=== PATIENT | female | born 1960 | race American Indian/Alaskan Native ===

== ENCOUNTER 2017-08-25 16:36 | Emergency (ER) | payer SELFPAY ==
[2017-08-25 18:48] VITALS: BP 125/77
--- NOTE | 2017-08-25 21:06 | Emergency Department Report ---
- General Chief Complaint: Skin/Abscess/Foreign Body Stated Complaint: SORE UNDER RIGHT BREAST Time Seen by Provider: 08/25/17 20:41 Source: patient Mode of arrival: Ambulatory Limitations: No Limitations - History of Present Illness Initial Comments: She is a 57-year-old female who has a past medical history of breast cancer approximately 10 years ago who is presenting with several miles of right breast drainage and there is a wound present underneath the right wrist. The patient states she has intermittent pain in this area that has been some drainage. Patient denies any fevers chills nipple discharge at this time. Patient states she's tried to see a physician has been unsuccessful up until this date - Related Data Previous Rx's Medication Instructions Recorded Last Taken Type Dextromethorphan HBr [Tussin Cough] 15 mg PO 4XD PRN #100 syrup 07/01/16 Unknown Rx Ibuprofen [Motrin 800 MG tab] 800 mg PO Q8HR PRN #14 tablet 07/01/16 Unknown Rx Doxycycline [Vibramycin CAP] 100 mg PO Q12HR #14 capsule 08/25/17 Unknown Rx HYDROcodone/APAP 5-325 [[place] 1 each PO Q6HR PRN #12 tablet 08/25/17 Unknown Rx 5/325] Ibuprofen [Motrin] 800 mg PO Q8HR PRN #20 tablet 08/25/17 Unknown Rx Allergies Allergy/AdvReac Type Severity Reaction Status Date / Time No Known Allergies Allergy Verified 07/01/16 07:21 ED Review of Systems ROS: Stated complaint: SORE UNDER RIGHT BREAST Other details as noted in HPI Comment: All other systems reviewed and negative ED Past Medical Hx - Past Medical History Hx of Cancer: Yes Additional medical history: Breast Cancer 1989 - Surgical History Hx Breast Surgery: Yes Additional Surgical History: Breast cancer with bilateral mastectomy and reconstruction 1989. - Social History Smoking Status: Never Smoker Substance Use Type: None - Medications Home Medications: Home Medications Medication Instructions Recorded Confirmed Last Taken Type Dextromethorphan HBr [Tussin Cough] 15 mg PO 4XD PRN #100 syrup 07/01/16 Unknown Rx Ibuprofen [Motrin 800 MG tab] 800 mg PO Q8HR PRN #14 tablet 07/01/16 Unknown Rx Doxycycline [Vibramycin CAP] 100 mg PO Q12HR #14 capsule 08/25/17 Unknown Rx HYDROcodone/APAP 5-325 [[place] 1 each PO Q6HR PRN #12 tablet 08/25/17 Unknown Rx 5/325] Ibuprofen [Motrin] 800 mg PO Q8HR PRN #20 tablet 08/25/17 Unknown Rx ED Physical Exam - General Limitations: No Limitations General appearance: alert, in no apparent distress - Head Head exam: Present: atraumatic, normocephalic - Eye Eye exam: Present: normal appearance - ENT ENT exam: Present: mucous membranes moist - Neck Neck exam: Present: normal inspection - Respiratory Respiratory exam: Present: normal lung sounds bilaterally. Absent: respiratory distress - Cardiovascular Cardiovascular Exam: Present: regular rate, normal rhythm. Absent: systolic murmur, diastolic murmur, rubs, gallop - GI/Abdominal GI/Abdominal exam: Present: soft, normal bowel sounds. Absent: distended, tenderness, guarding - Extremities Exam Extremities exam: Present: normal inspection - Back Exam Back exam: Present: normal inspection - Neurological Exam Neurological exam: Present: alert, oriented X3 - Psychiatric Psychiatric exam: Present: normal affect, normal mood - Skin Skin exam: Present: warm, dry, intact, normal color, other (beneath the proximal E7 centimeters long and it was at least 3-4 cm deep wound that has mostly good granulation tissue present this is a gaping wound. On the medial aspect of the wound there is a area of scar tissue that is soft and fluctuant. In palpation of this area there is no purulent drainage coming from this area currently. Patient does note some tenderness upon touching this area. There is a small amount of surrounding erythema.). Absent: rash ED Course Vital Signs 08/25/17 18:37 Temperature 97.9 F Pulse Rate 74 Respiratory 18 Rate Blood Pressure 125/77 O2 Sat by Pulse 99 Oximetry ED Medical Decision Making - Medical Decision Making She'll be referred to wound care as well as surgery for further management. Because of the small amount of erythema patient be started on antibiotics and pain meds. Critical care attestation.: If time is entered above; I have spent that time in minutes in the direct care of this critically ill patient, excluding procedure time. ED Disposition Clinical Impression: Wound infection Disposition: DC-01 TO HOME OR SELFCARE Is pt being admited?: No Does the pt Need Aspirin: No Condition: Stable Instructions: Wound Infection (ED) Prescriptions: Doxycycline [Vibramycin CAP] 100 mg PO Q12HR #14 capsule HYDROcodone/APAP 5-325 [[place] 5/325] 1 each PO Q6HR PRN #12 tablet PRN Reason: Pain Ibuprofen [Motrin] 800 mg PO Q8HR PRN #20 tablet PRN Reason: Pain Referrals: PRIMARY CARE,MD [Primary Care Provider] - 3-5 Days
== END 2017-08-25 22:05 | disposition home or self-care (01) ==
LOC: ED 16:36
DX: T18.4XXA Foreign body in colon, initial encounter (principal); Y83.8 Other surgical procedures as the cause of abnormal reaction of the patient, or of later complication, without mention of misadventure at the time of the procedure
CPT/HCPCS: 99282

== ENCOUNTER 2017-09-16 12:50 | Emergency (ER) | payer SELFPAY ==
--- NOTE | 2017-09-16 15:01 | Emergency Department Report ---
Minor Respiratory - HPI Chief Complaint: Upper Respiratory Infection Stated Complaint: FLU SX Time Seen by Provider: 09/16/17 13:46 Duration: 1 Day Pain Location: Other (body ) Minor Respiratory: Yes Able to Tolerate Fluids, Yes Cough, Yes Fever, No Rhinorrhea, No Sore Throat, No Ear Pain, No Sick Contacts, No Hemoptysis, No Chest Pain, No Shortness of Breath ED Review of Systems ROS: Stated complaint: FLU SX Other details as noted in HPI Constitutional: fever. denies: chills Eyes: denies: eye pain, eye discharge, vision change ENT: denies: ear pain, throat pain Respiratory: cough. denies: shortness of breath, wheezing Cardiovascular: denies: chest pain, palpitations Endocrine: no symptoms reported Gastrointestinal: denies: abdominal pain, nausea, diarrhea Genitourinary: denies: urgency, dysuria, discharge Musculoskeletal: myalgia. denies: back pain, joint swelling, arthralgia Skin: denies: rash, lesions Neurological: denies: headache, weakness, paresthesias Psychiatric: denies: anxiety, depression Hematological/Lymphatic: denies: easy bleeding, easy bruising ED Past Medical Hx - Past Medical History Previous Medical History?: No Additional medical history: Breast Cancer 1989 - Surgical History Past Surgical History?: Yes Hx Breast Surgery: Yes Additional Surgical History: Breast cancer with bilateral mastectomy and reconstruction 1989. - Social History Smoking Status: Never Smoker Substance Use Type: None - Medications Home Medications: Home Medications Medication Instructions Recorded Confirmed Last Taken Type Dextromethorphan HBr [Tussin Cough] 15 mg PO 4XD PRN #100 syrup 07/01/16 Unknown Rx Ibuprofen [Motrin 800 MG tab] 800 mg PO Q8HR PRN #14 tablet 07/01/16 Unknown Rx Doxycycline [Vibramycin CAP] 100 mg PO Q12HR #14 capsule 08/25/17 Unknown Rx HYDROcodone/APAP 5-325 [[place] 1 each PO Q6HR PRN #12 tablet 08/25/17 Unknown Rx 5/325] Benzonatate [Tessalon Perles] 100 mg PO Q8HR #20 capsule 09/16/17 Unknown Rx Ibuprofen [Motrin 800 MG tab] 800 mg PO Q8HR PRN #30 tablet 09/16/17 Unknown Rx guaiFENesin [Tussin Mucus-Chest 100 mg PO TID #80 ml 09/16/17 Unknown Rx Congestion] Minor Respiratory Exam - Exam General: Vital signs noted. No distress. Alert and acting appropriately. HEENT: Yes Moist Mucous Membranes, No Pharyngeal Erythema, No Pharyngeal Exudates, No Rhinorrhea, No Conjuctival Injection, No Frontal Tenderness, No Maxillary Tenderness Ear: Neither TM Bulge, Neither TM Erythema, Neither EAC Pain, Neither EAC Discharge Neck: Yes Supple, No Adenopathy Lungs: Yes Good Air Exchange, No Wheezes, No Ronchi, No Stridor, No Cough, No Labored Respirations, No Retractions, No Use of Accessory Muscles, No Other Abnormal Lung Sounds Heart: Yes Regular, No Murmur Abdomen: Yes Normal Bowel Sounds, No Tenderness, No Peritoneal Signs Skin: No Rash, No Edema Neurologic: Alert and oriented, no deficits. Musculoskeletal: Unremarkable. ED Course Vital Signs 09/16/17 13:03 Temperature 101.1 F H Pulse Rate 120 H Respiratory 16 Rate Blood Pressure 130/80 O2 Sat by Pulse 96 Oximetry ED Medical Decision Making - Radiology Data Radiology results: report reviewed, image reviewed CHEST 2 VIEWS INDICATION: Cough, fever. COMPARISON: 08/26/2014 FINDINGS: Frontal and lateral chest radiographs again demonstrate slight limited inspiration with mild exaggerated cardiomediastinal silhouette/possible cardiomegaly. Mild bibasilar atelectasis is new. Right hemidiaphragm slightly elevated. No large pleural effusion or CHF. Slight mid to lower thoracic spine degenerative spurring. CONCLUSION: Mild bibasilar atelectasis and possible cardiomegaly, as described. Thank you for the opportunity to participate in this patient's care. Transcribed By: RS Dictated By: CHANDRIKA GARZA MD Electronically Authenticated By: CHANDRIKA GARZA MD Signed Date/Time: 09/16/17 1552 - Medical Decision Making 57-year-old female presents with flulike symptoms. Fever resolved during the ED stay. Discussed with pt symptomatic relief with [id number] medications. Discussed continue Motrin as needed for fever and pain. Discussed increase fluids and diet intake. Discussed rest much needed. Discussed daily vitamin C for immune booster. Discussed follow-up with assembler in 3-5 days. Patient verbally states she understands and will comply the following instructions and follow-up Discussed with patient if symptoms worsen or new symptoms arise to return to ED immediately Vital signs stable. Patient is in no acute distress. She is asleep resting comfortably in the ED room Critical care attestation.: If time is entered above; I have spent that time in minutes in the direct care of this critically ill patient, excluding procedure time. ED Disposition Clinical Impression: Viral syndrome URI (upper respiratory infection) Qualifiers: URI type: unspecified URI Qualified Code(s): J06.9 - Acute upper respiratory infection, unspecified Disposition: TO HOME OR SELFCARE Is pt being admited?: No Does the pt Need Aspirin: No Condition: Stable Instructions: Viral Syndrome (ED), Upper Respiratory Infection (ED), Cold Symptoms (ED) Additional Instructions: Make sure to follow up with the primary care physician as discussed. Take all your medications as you've been prescribed. If you have any worsening symptoms or develop new symptoms please return to ED immediately. Prescriptions: Benzonatate [Tessalon Perles] 100 mg PO Q8HR #20 capsule guaiFENesin [Tussin Mucus-Chest Congestion] 100 mg PO TID #80 ml Ibuprofen [Motrin 800 MG tab] 800 mg PO Q8HR PRN #30 tablet PRN Reason: Pain Referrals: PRIMARY CARE, [Primary Care Provider] - 3-5 Days CIARRA OSEGUERA MD [Referring] - 3-5 Days [facility] [Outside] - 3-5 Days [facility] [Outside] - 3-5 Days Forms: Accompanied Note, Work/School Release Form(ED) Time of Disposition: 16:12
[2017-09-16] MEDS: MOTRIN PO ONE (15:15)
[2017-09-16] MEDS: TYLENOL/CODEINE PO ONE (15:16)
--- NOTE | 2017-09-16 16:00 | XRay Report ---
CHEST 2 VIEWS INDICATION: Cough, fever. COMPARISON: 08/26/2014 FINDINGS: Frontal and lateral chest radiographs again demonstrate slight limited inspiration with mild exaggerated cardiomediastinal silhouette/possible cardiomegaly. Mild bibasilar atelectasis is new. Right hemidiaphragm slightly elevated. No large pleural effusion or CHF. Slight mid to lower thoracic spine degenerative spurring. CONCLUSION: Mild bibasilar atelectasis and possible cardiomegaly, as described. Thank you for the opportunity to participate in this patient's care.
[2017-09-16 16:42] VITALS: BP 105/62
== END 2017-09-16 16:45 | disposition home or self-care (01) ==
LOC: ED 12:50
DX: J06.9 Acute upper respiratory infection, unspecified (principal); B34.9 Viral infection, unspecified; Z85.3 Personal history of malignant neoplasm of breast; Z90.13 Acquired absence of bilateral breasts and nipples
CPT/HCPCS: 71046; 99283

== ENCOUNTER 2017-10-20 15:15 | Outpatient (CLI) | payer OTHER | END 2017-10-20 15:16 | disposition home or self-care (01) | LOC: LABHHL 15:15 | PROVIDERS: ATTEND Surgery | DX: N64.59 Other signs and symptoms in breast (principal); Z85.3 Personal history of malignant neoplasm of breast | CPT/HCPCS: 88305; 88341; 88342; 88361 ==

== ENCOUNTER 2017-11-09 07:35 | Day surgery (SDC) | payer MEDICAID, OTHER, SELFPAY ==
[~2017-11-09 07:35] MED LIST: NACL 0.9% 1000 ML 1,000 ML IV SCH
[2017-11-09] MEDS ORDERED: ANCEF/STERILE WATER 2 GM/20 ML IV NR (08:09)
--- NOTE | 2017-11-09 08:38 | Anesthesia Day of Surgery ---
Anesthesia Day of Surgery - Day of Surgery Patient Examined: Yes Patient H&P Reviewed: Yes Patient is NPO: Yes
[2017-11-09] MEDS ORDERED: DILAUDID IV PRN (08:40)
[2017-11-09] MEDS ORDERED: ZOFRAN IV PRN (08:40)
--- NOTE | 2017-11-09 08:40 | Anesthesia Consultation ---
Anesthesia Consult and Med Hx Date of service: 11/09/17 - Airway Anesthetic Teeth Evaluation: Good ROM Head & Neck: Adequate Mental/Hyoid Distance: Adequate Mallampati Class: Class II Intubation Access Assessment: Probably Good - Pulmonary Exam CTA: Yes - Cardiac Exam Cardiac Exam: RRR - Pre-Operative Health Status ASA Pre-Surgery Classification: ASA3 Proposed Anesthetic Plan: General (GA with LMA ok) - Central Nervous System Hx Psychiatric Problems: No - Other Systems Hx Alcohol Use: No Hx Substance Use: No Hx Cancer: Yes
[2017-11-09] MEDS ORDERED: VERSED IV NR (08:41)
[2017-11-09] MEDS ORDERED: NACL BACTERIOSTATIC INFILTRATI ONE (08:48)
[2017-11-09] MEDS ORDERED: SUBLIMAZE IV SCH (09:05)
[2017-11-09] MEDS ORDERED: HEPARIN 10,000 UNITS/10 ML ONE (09:44)
[2017-11-09] MEDS ORDERED: MARCAINE 0.25% INFILTRATI ONE ×2 (09:45→12:44)
[2017-11-09] MEDS ORDERED: XYLOCAINE 1% 20 mL ONE (09:45)
[2017-11-09] MEDS ORDERED: NACL 0.9% 100 ML ONE (09:45)
[2017-11-09] MEDS ORDERED: ZOFRAN IV NR (10:00)
[2017-11-09] MEDS ORDERED: DIPRIVAN 10 MG/ML IV ONE ×2 (11:57→12:47)
[2017-11-09] MEDS ORDERED: VERSED IV ONE ×2 (11:58→12:52)
[2017-11-09] MEDS ORDERED: NACL 0.9% IR ONE (12:41)
[2017-11-09] MEDS ORDERED: HEPARIN 10,000 UNITS/10 ML IV ONE (12:42)
[2017-11-09] MEDS ORDERED: NACL 0.9% IV ONE (12:43)
[2017-11-09] MEDS ORDERED: XYLOCAINE 1% 20 mL INFILTRATI ONE (12:43)
[2017-11-09] MEDS ORDERED: NACL 0.9% 1000 ML 0 ML ONE (12:58)
--- NOTE | 2017-11-09 13:14 | Short Stay Summary ---
Short Stay Documentation Date of service: 11/09/17 Narrative H&P: 57 yo F with right sided breast cancer presents for port placement to start chemotherapy. The patient has no complaints. - History Principal diagnosis: right breast cancer H&P: obtained from office - Allergies and Medications Current Medications: Allergies hydrocodone Adverse Reaction (Verified 11/09/17 09:29) Nausea PT STATES SHE ALSO HAD SEVERE HEADACHE Home Medications Medication Instructions Recorded Confirmed Last Taken Type Dextromethorphan HBr [Tussin Cough] 15 mg PO 4XD PRN #100 syrup 07/01/16 Unknown Rx Ibuprofen [Motrin 800 MG tab] 800 mg PO Q8HR PRN #14 tablet 07/01/16 11/04/17 Unknown Rx Doxycycline [Vibramycin CAP] 100 mg PO Q12HR #14 capsule 08/25/17 11/04/17 Unknown Rx HYDROcodone/APAP 5-325 [[place] 1 each PO Q6HR PRN #12 tablet 08/25/17 11/04/17 Unknown Rx 5/325] Benzonatate [Tessalon Perles] 100 mg PO Q8HR #20 capsule 09/16/17 11/04/17 Unknown Rx Ibuprofen [Motrin 800 MG tab] 800 mg PO Q8HR PRN #30 tablet 09/16/17 11/04/17 Unknown Rx guaiFENesin [Tussin Mucus-Chest 100 mg PO TID #80 ml 09/16/17 11/04/17 Unknown Rx Congestion] Clindamycin HCl 300 mg PO Q6H 11/04/17 11/09/17 11/08/17 History Active Medications Fentanyl (Sublimaze) 100 mcg IV ONCE ISAAK Stop: 11/09/17 23:59 Last Admin: 11/09/17 09:13 Dose: 50 mcg Sodium Chloride (Nacl 0.9% 1000 Ml) 1,000 mls @ 100 mls/hr IV DIRECT ISAAK Last Admin: 11/09/17 08:50 Dose: 100 mls/hr Midazolam HCl (Versed) 2 mg IV PREOP NR Stop: 11/09/17 23:59 Last Admin: 11/09/17 08:51 Dose: 2 mg Ondansetron HCl (Zofran) 4 mg IV PREOP NR Stop: 11/09/17 16:00 Last Admin: 11/09/17 09:15 Dose: 4 mg - Brief post op/procedure progress note Date of procedure: 11/09/17 Pre-op diagnosis: right breast cancer Post-op diagnosis: same Procedure: Placement left subclavian port a cath using ultrasound guidance Anesthesia: MAC, local Findings: good placement of port on port op CXR, no evidence of PTX Surgeon: EDWARD BACH Estimated blood loss: minimal Pathology: none Condition: stable - Hospital course Hospital course: Pt was observed in the PACU and discharged home once criteria was met. - Disposition Condition at discharge: Good Disposition: DC-01 TO HOME OR SELFCARE Short Stay Discharge Plan Activity: no restrictions Diet: regular Wound: open to air (may shower tomorrow, pat incision dry, do not scrub. Do not submerge incisions in water until they are healed.) Additional Instructions: Call surgeon's office if you notice any redness/swelling around incisions. Some bruising will be normal, but call surgeon's office if the bruising gets worse. Apply warm compress or heating pad to left arm. If the swelling does not improve in 1-2 days, please call the office. Follow up with: SUAD LAKE MD [Primary Care Provider] - 7 Days NEGRA SAHU MD [Staff Physician] - 7 Days
[2017-11-09] MEDS ORDERED: MOTRIN PO ONE (13:25)
[2017-11-09 13:55] VITALS: BP 137/92
--- NOTE | 2017-11-09 14:06 | Fluoroscopy Report ---
AP CHEST: HISTORY: Breast cancer A left Tozjre-n-Lhwn has been inserted which terminates at the cavoatrial junction. The lungs are clear. No evidence for pneumothorax. Normal heart and mediastinal structures. The thoracic cage is grossly intact. IMPRESSION: Unremarkable AP chest. Kqxhan-p-Vjuj placement. No pneumothorax.
--- NOTE | 2017-11-10 23:41 | Operative Report ---
Operative Report Operative Report: Date of procedure: 11/09/17 Pre-op diagnosis: right breast cancer Post-op diagnosis: same Procedure: Placement left subclavian port a cath using ultrasound guidance Anesthesia: MAC, local Findings: good placement of port on port op CXR, no evidence of PTX Surgeon: EDWARD BACH Estimated blood loss: minimal Pathology: none Condition: stable HPI and indication: 57 yo F with right breast ca who is a candidate for chemotherapy. She presents for port placement. All risks, benefits, alternatives to surgery discussed and questions answered. Consent on chart. Procedure in detail: Patient identified in the preop area and taken to the OR and placed on the OR table in supine position. After anesthesia was induced, the upper chest and neck was prepped and draped in the usual sterile fashion. A time out was performed. The patient was placed in trendelenberg position. Using the ultrasound, the left subclavian vein was visualized and compressible. The skin was anesthetized with local anesthetic and the subclavian vein accessed on the first stick using ultrasound guidance. There was return of dark red, nonpulsatile blood. The wire was threaded without resistance and positioning confirmed using fluoroscopy. The needle was removed and the wire secured to the drapes using a hemostat. An incision was made in the left upper chest using a 15 blade and dissection carried down through the skin and subcutaneous tissue using electrocautery. Hemostasis was achieved along the way. A pocket was created bluntly and with electrocautery. The catheter was then tunnelled from the pocket to the wire. The breakaway sheath/dilator complex was then inserted over the wire and advanced under fluoroscopy. The wire and dilator was removed and the catheter placed through the breakaway sheath and the sheath broken away until the catheter lay flush under the skin. Using fluoroscopy, the catheter was pulled back until the tip was seen at the cavoatrial junction on Xray. The port was then attached in the usual fashion and it was placed in the pocket and sutured to the prepectoral fascia using 2-0 vicryl in 2 locations. The pocket was irrigated and hemostasis ensured. The port was tested with heparinized saline and there was return of blood and the port flushed easily. The port was then instilled with 3000 units of heparin. The deep dermal layer was then closed using 3-0 vicryl interrupted sutures and the skin incisions closed using 4-0 monocryl subcuticular stitch. At the end of the case, all sponge, instrument, and sharp counts were correct x 2. Post operative chest xray showed the port to be in good position without pneumothorax. The patient was awoken from anesthesia and taken to PACU in stable condition.
== END 2017-11-09 14:45 | disposition home or self-care (01) ==
LOC: OR 07:35
PROVIDERS: ATTEND Surgery
DX: C50.311 Malignant neoplasm of lower-inner quadrant of right female breast (principal); Z88.6 Allergy status to analgesic agent
CPT/HCPCS: 36561; 77001; C1788; J0690; J1644; J2250; J2405; J2704; J3010; J7030

== ENCOUNTER 2017-11-16 08:52 | Outpatient (CLI) | payer MEDICAID ==
[2017-11-16 09:53] LABS: Blood Urea Nitrogen 12 mg/dL (7-17)
--- NOTE | 2017-11-16 12:46 | Nuclear Medicine Report ---
NUCLEAR MEDICINE WHOLE-BODY BONE SCAN: 11/16/17 CLINICAL: Recent right breast cancer diagnosis. COMPARISON: None. TECHNIQUE: 25 millicuries technetium 99m MDP was injected intravenously and whole body scans were obtained at 3 hours. FINDINGS: Normal distribution of radionuclide in the skeleton urinary tract and soft tissues. The urinary bladder deviates to the right of midline. No abnormal uptake. IMPRESSION: Normal study.
--- NOTE | 2017-11-16 13:40 | Cat Scan Report ---
FINAL REPORT EXAM: CT CHEST, ABDOMEN AND PELVIS w CON HISTORY: Malignant neoplasm of lower-inner quadrant of right female breast TECHNIQUE: CTs of the chest, abdomen and pelvis or performed from thoracic inlet to diaphragm. Images were obtained after the administration of IV contrast. Coronal and sagittal reformatted images were obtained. PRIORS: None. FINDINGS: There is no significant mediastinal or hilar mass seen. There are no pleural effusions seen. The lungs are clear. There is no pneumothorax seen. There is a large open wound involving the right breast. There are few low-density liver lesions which are too small to characterize. There are 2 lesions on image 88 of C ear ease 2 measuring 5 and 6 mm. There is a lesion in the right lobe on image 94 measuring 10 mm. Similarly there is a 6 mm low-density lesion in the spleen. There is no splenomegaly. There are bilateral multiple peripelvic renal cysts. A few additional renal cysts seen on the left. The aorta is normal in appearance and caliber. The visualized pancreas, adrenal glands are unremarkable. There is no abnormal lymphadenopathy seen. There is no evidence of intestinal obstruction. There is no evidence of intestinal obstruction. The appendix is normal. There is no free intraperitoneal air. There is a large masslike enhancing area in the uterus which is concerning for mass. I cannot exclude a large endometrial mass. Abnormality measures about 8 cm diameter. The bladder is unremarkable. IMPRESSION: Large enhancing masslike area in the uterus measuring roughly 8 cm. While this could be an enhancing uterine fibroid, abnormal thickened endometrium/endometrial mass not excluded. Recommend correlation with ultrasound and or MRI. There are few tiny low-density liver lesions which are too small to characterize. If long-term stability cannot be established by comparison to old studies, consider MRI correlation. There is a tiny low-density splenic lesion also seen which is of doubtful significance. Numerous peripelvic renal cysts bilaterally.
== END 2017-11-16 08:53 | disposition home or self-care (01) ==
LOC: NM 08:52
PROVIDERS: ATTEND Surgery
DX: C50.311 Malignant neoplasm of lower-inner quadrant of right female breast (principal); S21.001A Unspecified open wound of right breast, initial encounter; N28.1 Cyst of kidney, acquired; K76.89 Other specified diseases of liver; X58.XXXA Exposure to other specified factors, initial encounter; Y93.89 Activity, other specified; Y92.89 Other specified places as the place of occurrence of the external cause; Y99.8 Other external cause status
CPT/HCPCS: 36415; 71260; 74177; 78306; 82565; 84520; A9503; Q9967

== ENCOUNTER 2017-12-07 23:40 | Emergency (ER) | payer MEDICAID ==
[2017-12-08 01:19] LABS: Hematocrit 37.5 % (30.3-42.9); Hemoglobin 12.6 gm/dl (10.1-14.3); Mean Corpuscular HGB Conc 34 % (30-34); Mean Corpuscular Hemoglobin 31 pg (28-32); Mean Corpuscular Volume 93 fl (79-97); Platelet Count 204 K/mm3 (140-440); Red Blood Count 4.03 M/mm3 (3.65-5.03); Red Cell Distribution Width 14.8 % (13.2-15.2)
[2017-12-08 01:39] LABS: Alanine Aminotransferase 38 units/L (7-56); Albumin 4.2 g/dL (3.9-5); BUN/Creatinine Ratio 19; Blood Urea Nitrogen 21 mg/dL (7-17); Calcium 10.4 mg/dL (8.4-10.2); Hemolysis Index 8
[2017-12-08 02:30] LABS: Bacteria,Urine 1+ /HPF (Negative); Bilirubin,Urine NEG (Negative); Blood,Urine SM (Negative); Color,Urine Amber (Yellow); Mucus,Urine 1+ /HPF
[2017-12-08 05:03] LABS: Band Neutrophils # (Manual) 0.7 K/mm3; Basophils % (Manual) 0 % (0.0-1.8); Eosinophils % (Manual) 0 % (0.0-4.3); Myelocytes # (Manual) 0.1 K/mm3; Total Cells Counted 100
[2017-12-08 05:04] LABS: Anisocytosis 1+; Dohle Bodies 1+
[2017-12-08] MEDS ORDERED: NACL 0.9% 1000 ML 1,000 ML IV ONE ×2 (06:35→06:37)
[2017-12-08] MEDS ORDERED: ZOFRAN IV ONE (06:35)
[2017-12-08] MEDS ORDERED: ROCEPHIN/NS 1 GM/50 ML 1 GM/50 ML BAG IV ONE (06:35)
[2017-12-08] MEDS ORDERED: DILAUDID IV ONE (06:36)
--- NOTE | 2017-12-08 06:37 | Emergency Department Report ---
ED General Adult HPI - General Chief complaint: Abdominal Pain Stated complaint: BODY PAIN Time Seen by Provider: 12/08/17 06:21 Source: patient, family, RN notes reviewed, old records reviewed Mode of arrival: Ambulatory Limitations: No Limitations - History of Present Illness Initial comments: This is a 57-year-old female who is unknown to this provider. Her oncologist is Dr. Bocanegra. Her breast surgeon is Dr. Galvez Past medical history includes breast cancer, in the early 90s, now with recurrence. She is currently on carboplatin. She is had it 2. Patient presents to the ER with a complaint of nausea and vomiting and weakness. She also describes suprapubic pain and discomfort. She also endorses weakness. The suprapubic pain is achy, does not radiate anywhere, and increases with palpation and decreases with rest. The patient denies dysuria. She denies diarrhea. Patient had a CAT scan of her abdomen and pelvis done 11/16/2017 which demonstrated a large enhancing masslike area in the uterus, 8 cm, might been an enhancing uterine fibroid, although endometrial mass is not excluded. The patient was treated with IV fluids, hydromorphone, Zofran in the ER, these markedly improved her symptoms, she was able to tolerate liquid feeds, and I also contacted her private oncologist, Dr. Bocanegra, indicated he would like to see her in the office at 9:00 tomorrow morning. -: Gradual Location: abdomen Consistency: constant Improves with: medication Worsens with: eating Associated Symptoms: loss of appetite, malaise, nausea/vomiting, weakness. denies: confusion, chest pain, cough, diaphoresis, fever/chills, headaches, rash , seizure, shortness of breath, syncope - Related Data Home Medications Medication Instructions Recorded Confirmed Last Taken Clindamycin HCl 300 mg PO Q6H 11/04/17 11/09/17 11/08/17 Previous Rx's Medication Instructions Recorded Last Taken Type Dextromethorphan HBr [Tussin Cough] 15 mg PO 4XD PRN #100 syrup 07/01/16 Unknown Rx Ibuprofen [Motrin 800 MG tab] 800 mg PO Q8HR PRN #14 tablet 07/01/16 Unknown Rx Doxycycline [Vibramycin CAP] 100 mg PO Q12HR #14 capsule 08/25/17 Unknown Rx HYDROcodone/APAP 5-325 [[place] 1 each PO Q6HR PRN #12 tablet 08/25/17 Unknown Rx 5-325 mg TAB] Benzonatate [Tessalon Perles] 100 mg PO Q8HR #20 capsule 09/16/17 Unknown Rx Ibuprofen [Motrin 800 MG tab] 800 mg PO Q8HR PRN #30 tablet 09/16/17 Unknown Rx guaiFENesin [Tussin Mucus-Chest 100 mg PO TID #80 ml 09/16/17 Unknown Rx Congestion] Acetaminophen [Tylenol Arthritis] 650 mg PO Q6HR PRN #30 tablet.er 12/08/17 Unknown Rx Ibuprofen [Motrin] 600 mg PO Q8H PRN #30 tablet 12/08/17 Unknown Rx Nitrofurantoin [place]/M-Cryst 100 mg PO Q12HR #13 capsule 12/08/17 Unknown Rx [Macrobid CAP] Ondansetron [Zofran Odt] 4 mg PO Q8HR PRN #20 tab.rapdis 12/08/17 Unknown Rx Promethazine [Phenergan SUPPOS] 50 mg VT Q6H PRN #20 supp.rect 12/08/17 Unknown Rx Allergies Allergy/AdvReac Type Severity Reaction Status Date / Time hydrocodone AdvReac Nausea Verified 11/09/17 09:29 ED Review of Systems ROS: Stated complaint: BODY PAIN Other details as noted in HPI Comment: All other systems reviewed and negative ED Past Medical Hx - Past Medical History Previous Medical History?: Yes Additional medical history: Breast Cancer 1989 - Surgical History Past Surgical History?: Yes Hx Breast Surgery: Yes Additional Surgical History: Breast cancer with bilateral mastectomy and reconstruction 1989. - Social History Smoking Status: Never Smoker Substance Use Type: None - Medications Home Medications: Home Medications Medication Instructions Recorded Confirmed Last Taken Type Dextromethorphan HBr [Tussin Cough] 15 mg PO 4XD PRN #100 syrup 07/01/16 Unknown Rx Ibuprofen [Motrin 800 MG tab] 800 mg PO Q8HR PRN #14 tablet 07/01/16 11/04/17 Unknown Rx Doxycycline [Vibramycin CAP] 100 mg PO Q12HR #14 capsule 08/25/17 11/04/17 Unknown Rx HYDROcodone/APAP 5-325 [[place] 1 each PO Q6HR PRN #12 tablet 08/25/17 11/04/17 Unknown Rx 5-325 mg TAB] Benzonatate [Tessalon Perles] 100 mg PO Q8HR #20 capsule 09/16/17 11/04/17 Unknown Rx Ibuprofen [Motrin 800 MG tab] 800 mg PO Q8HR PRN #30 tablet 09/16/17 11/04/17 Unknown Rx guaiFENesin [Tussin Mucus-Chest 100 mg PO TID #80 ml 09/16/17 11/04/17 Unknown Rx Congestion] Clindamycin HCl 300 mg PO Q6H 11/04/17 11/09/17 11/08/17 History Acetaminophen [Tylenol Arthritis] 650 mg PO Q6HR PRN #30 tablet.er 12/08/17 Unknown Rx Ibuprofen [Motrin] 600 mg PO Q8H PRN #30 tablet 12/08/17 Unknown Rx Nitrofurantoin [place]/M-Cryst 100 mg PO Q12HR #13 capsule 12/08/17 Unknown Rx [Macrobid CAP] Ondansetron [Zofran Odt] 4 mg PO Q8HR PRN #20 tab.rapdis 12/08/17 Unknown Rx Promethazine [Phenergan SUPPOS] 50 mg VT Q6H PRN #20 supp.rect 12/08/17 Unknown Rx ED Physical Exam - General Limitations: No Limitations General appearance: alert, in no apparent distress - Head Head exam: Present: atraumatic, normocephalic - Eye Eye exam: Present: normal appearance, EOMI. Absent: nystagmus - ENT ENT exam: Present: normal exam, normal orophraynx, mucous membranes moist, normal external ear exam - Neck Neck exam: Present: normal inspection, full ROM - Respiratory Respiratory exam: Present: normal lung sounds bilaterally, other (there is a chronic wound on the right chest wall, 6 x 6 x 6 cm, no redness, pus or streaking, during the chest and breast exam, escorted by nurse Kirsty Acevedo). Absent: respiratory distress - Cardiovascular Cardiovascular Exam: Present: regular rate, normal rhythm, normal heart sounds. Absent: bradycardia, tachycardia, irregular rhythm, systolic murmur, diastolic murmur, rubs, gallop - GI/Abdominal GI/Abdominal exam: Present: soft, tenderness (there is suprapubic tenderness, there is no rebound, guarding or peritoneal signs.), normal bowel sounds. Absent: distended, guarding, rebound, rigid - Extremities Exam Extremities exam: Present: normal inspection, full ROM, normal capillary refill. Absent: tenderness, pedal edema, joint swelling, calf tenderness - Back Exam Back exam: Present: normal inspection, full ROM. Absent: tenderness, CVA tenderness (R), paraspinal tenderness, vertebral tenderness - Neurological Exam Neurological exam: Present: alert, oriented X3, CN II-XII intact, normal gait, other (Extraocular movements intact. Tongue midline. No facial droop. Facial sensation intact to light touch in the V1, V2, V3 distribution bilaterally. 5 and 5 strength in 4 extremities.. Sensation is intact to light touch in 4 extremities.). Absent: motor sensory deficit - Psychiatric Psychiatric exam: Present: normal affect, normal mood - Skin Skin exam: Present: warm, dry, intact, normal color. Absent: rash ED Course Vital Signs 12/08/17 12/08/17 00:27 04:12 Temperature 98.3 F 97.9 F Pulse Rate 127 H 89 Respiratory 18 16 Rate Blood Pressure 97/69 Blood Pressure 108/63 [Left] O2 Sat by Pulse 98 94 Oximetry ED Medical Decision Making - Lab Data Result diagrams: 12/08/17 01:01 12/08/17 01:01 Vital Signs 12/08/17 12/08/17 00:27 04:12 Temperature 98.3 F 97.9 F Pulse Rate 127 H 89 Respiratory 18 16 Rate Blood Pressure 97/69 Blood Pressure 108/63 [Left] O2 Sat by Pulse 98 94 Oximetry Lab Results 12/08/17 12/08/17 12/08/17 Range/Units 01:01 01:01 01:36 WBC 3.6 L (4.5-11.0) K/mm3 RBC 4.03 (3.65-5.03) M/mm3 Hgb 12.6 (10.1-14.3) gm/dl Hct 37.5 (30.3-42.9) % MCV 93 (79-97) fl MCH 31 (28-32) pg MCHC 34 (30-34) % RDW 14.8 (13.2-15.2) % Plt Count 204 (140-440) K/mm3 [place] % (Auto) Multicut Line Operator Add Manual Diff Complete Total Counted 100 Seg Neuts % (Manual) 46.0 (40.0-70.0) % Band Neutrophils % 19.0 % Lymphocytes % (Manual) 18.0 (13.4-35.0) % Reactive Lymphs % (Man) 0 % Monocytes % (Manual) 15.0 H (0.0-7.3) % Eosinophils % (Manual) 0 (0.0-4.3) % Basophils % (Manual) 0 (0.0-1.8) % Metamyelocytes % 0 % Myelocytes % 2.0 % Promyelocytes % 0 % Blast Cells % 0 % Nucleated RBC % Not Reportable Seg Neutrophils # Man 1.7 L (1.8-7.7) K/mm3 Band Neutrophils # 0.7 K/mm3 Lymphocytes # (Manual) 0.6 L (1.2-5.4) K/mm3 Abs React Lymphs (Man) 0.0 K/mm3 Monocytes # (Manual) 0.5 (0.0-0.8) K/mm3 Eosinophils # (Manual) 0.0 (0.0-0.4) K/mm3 Basophils # (Manual) 0.0 (0.0-0.1) K/mm3 Metamyelocytes # 0.0 K/mm3 Myelocytes # 0.1 K/mm3 Promyelocytes # 0.0 K/mm3 Blast Cells # 0.0 K/mm3 WBC Morphology Not Reportable Hypersegmented Neuts Not Reportable Hyposegmented Neuts Not Reportable Hypogranular Neuts Not Reportable Smudge Cells Not Reportable Toxic Granulation Not Reportable Toxic Vacuolation Not Reportable Dohle Bodies 1+ Pelger-Huet Anomaly Not Reportable Valerie Rods Not Reportable Platelet Estimate Appears normal Clumped Platelets Not Reportable Plt Clumps, EDTA Not Reportable Large Platelets Not Reportable Giant Platelets Not Reportable Platelet Satelliting Not Reportable Plt Morphology Comment Not Reportable RBC Morphology Not Reportable Dimorphic RBCs Not Reportable Polychromasia Not Reportable Hypochromasia Not Reportable Poikilocytosis Not Reportable Anisocytosis 1+ Microcytosis Not Reportable Macrocytosis Not Reportable Spherocytes Not Reportable Pappenheimer Bodies Not Reportable Sickle Cells Not Reportable Target Cells Not Reportable Tear Drop Cells Not Reportable Ovalocytes Not Reportable Helmet Cells Not Reportable Rodriguez-Ringoes Bodies Not Reportable [place] Not Reportable [place] Cells Not Reportable Bite Cells Not Reportable Crenated Cell Not Reportable Elliptocytes Not Reportable Acanthocytes (Spur) Not Reportable Rouleaux Not Reportable Hemoglobin C Crystals Not Reportable Schistocytes Not Reportable Malaria parasites Not Reportable Surinder Bodies Not Reportable Hem Pathologist Commnt No Sodium 133 L (137-145) mmol/L Potassium 4.7 (3.6-5.0) mmol/L Chloride 95.7 L (98-107) mmol/L Carbon Dioxide 22 (22-30) mmol/L Anion Gap 20 mmol/L BUN 21 H (7-17) mg/dL Creatinine 1.1 (0.7-1.2) mg/dL Estimated GFR > 60 ml/min BUN/Creatinine Ratio 19 % Glucose 105 H (65-100) mg/dL Uric Acid (3.5-7.6) mg/dL Calcium 10.4 H (8.4-10.2) mg/dL Phosphorus (2.5-4.5) mg/dL Magnesium (1.7-2.3) mg/dL Total Bilirubin 2.80 H (0.1-1.2) mg/dL Direct Bilirubin (0-0.2) mg/dL Indirect Bilirubin mg/dL AST 23 (5-40) units/L ALT 38 (7-56) units/L Alkaline Phosphatase 154 H (35-129) units/L Lactate Dehydrogenase (91-180) units/L Total Creatine Kinase (30-135) units/L Total Protein 7.4 (6.3-8.2) g/dL Albumin 4.2 (3.9-5) g/dL Albumin/Globulin Ratio 1.3 % Urine Color Regla (Yellow) Urine Turbidity Hazy (Clear) Urine pH 5.0 (5.0-7.0) Ur Specific [place] 1.020 (1.003-1.030) Urine Protein 100 mg/dl (Negative) mg/dL Urine Glucose (UA) Neg (Negative) mg/dL Urine Ketones Tr (Negative) mg/dL Urine Blood Sm (Negative) Urine Nitrite Neg (Negative) Urine Bilirubin Neg (Negative) Urine Urobilinogen 2.0 (<2.0) mg/dL Ur Leukocyte Esterase Mod (Negative) Urine WBC (Auto) 63.0 H (0.0-6.0) /HPF Urine RBC (Auto) 3.0 (0.0-6.0) /HPF U Epithel Cells (Auto) 13.0 (0-13.0) /HPF Urine Bacteria (Auto) 1+ (Negative) /HPF Urine Mucus 1+ /HPF 12/08/17 Range/Units 06:57 WBC (4.5-11.0) K/mm3 RBC (3.65-5.03) M/mm3 Hgb (10.1-14.3) gm/dl Hct (30.3-42.9) % MCV (79-97) fl MCH (28-32) pg MCHC (30-34) % RDW (13.2-15.2) % Plt Count (140-440) K/mm3 [place] % (Auto) Add Manual Diff Total Counted Seg Neuts % (Manual) (40.0-70.0) % Band Neutrophils % % Lymphocytes % (Manual) (13.4-35.0) % Reactive Lymphs % (Man) % Monocytes % (Manual) (0.0-7.3) % Eosinophils % (Manual) (0.0-4.3) % Basophils % (Manual) (0.0-1.8) % Metamyelocytes % % Myelocytes % % Promyelocytes % % Blast Cells % % Nucleated RBC % Seg Neutrophils # Man (1.8-7.7) K/mm3 Band Neutrophils # K/mm3 Lymphocytes # (Manual) (1.2-5.4) K/mm3 Abs React Lymphs (Man) K/mm3 Monocytes # (Manual) (0.0-0.8) K/mm3 Eosinophils # (Manual) (0.0-0.4) K/mm3 Basophils # (Manual) (0.0-0.1) K/mm3 Metamyelocytes # K/mm3 Myelocytes # K/mm3 Promyelocytes # K/mm3 Blast Cells # K/mm3 WBC Morphology Hypersegmented Neuts Hyposegmented Neuts Hypogranular Neuts Smudge Cells Toxic Granulation Toxic Vacuolation Dohle Bodies Pelger-Huet Anomaly Valerie Rods Platelet Estimate Clumped Platelets Plt Clumps, EDTA Large Platelets Giant Platelets Platelet Satelliting Plt Morphology Comment RBC Morphology Dimorphic RBCs Polychromasia Hypochromasia Poikilocytosis Anisocytosis Microcytosis Macrocytosis Spherocytes Pappenheimer Bodies Sickle Cells Target Cells Tear Drop Cells Ovalocytes Helmet Cells Rodriguez-Ringoes Bodies [place] Cells Bite Cells Crenated Cell Elliptocytes Acanthocytes (Spur) Rouleaux Hemoglobin C Crystals Schistocytes Malaria parasites Surinder Bodies Hem Pathologist Commnt Sodium (137-145) mmol/L Potassium (3.6-5.0) mmol/L Chloride (98-107) mmol/L Carbon Dioxide (22-30) mmol/L Anion Gap mmol/L BUN (7-17) mg/dL Creatinine (0.7-1.2) mg/dL Estimated GFR ml/min BUN/Creatinine Ratio % Glucose (65-100) mg/dL Uric Acid 6.0 (3.5-7.6) mg/dL Calcium (8.4-10.2) mg/dL Phosphorus 3.30 (2.5-4.5) mg/dL Magnesium 1.90 (1.7-2.3) mg/dL Total Bilirubin 2.10 H (0.1-1.2) mg/dL Direct Bilirubin 1.2 H (0-0.2) mg/dL Indirect Bilirubin 0.9 mg/dL AST (5-40) units/L ALT (7-56) units/L Alkaline Phosphatase (35-129) units/L Lactate Dehydrogenase 172 (91-180) units/L Total Creatine Kinase 34 (30-135) units/L Total Protein (6.3-8.2) g/dL Albumin (3.9-5) g/dL Albumin/Globulin Ratio % Urine Color (Yellow) Urine Turbidity (Clear) Urine pH (5.0-7.0) Ur Specific [place] (1.003-1.030) Urine Protein (Negative) mg/dL Urine Glucose (UA) (Negative) mg/dL Urine Ketones (Negative) mg/dL Urine Blood (Negative) Urine Nitrite (Negative) Urine Bilirubin (Negative) Urine Urobilinogen (<2.0) mg/dL Ur Leukocyte Esterase (Negative) Urine WBC (Auto) (0.0-6.0) /HPF Urine RBC (Auto) (0.0-6.0) /HPF U Epithel Cells (Auto) (0-13.0) /HPF Urine Bacteria (Auto) (Negative) /HPF Urine Mucus /HPF - Medical Decision Making Differential diagnosis, including but not limited to: Chemotherapy side effects , urinary tract infection, subacute uterine mass Assessment and plan: 57-year-old female with resolved nausea and vomiting. She is afebrile, his tachycardia has resolved, her belly has mild suprapubic tenderness, had a CAT scan a few weeks ago demonstrated nonspecific uterine findings. Patient's tenderness is resolved after hydromorphone administration, she has follow-up tomorrow with her oncologist, she is tolerating liquid feeds, she will be treated empirically with Macrobid for a possible cystitis. Critical care attestation.: If time is entered above; I have spent that time in minutes in the direct care of this critically ill patient, excluding procedure time. ED Disposition Clinical Impression: Suprapubic pain, History of nausea and vomiting Disposition: TO HOME OR SELFCARE Is pt being admited?: No Does the pt Need Aspirin: No Condition: Stable Instructions: Abdominal Pain (ED) Additional Instructions: Cultures were sent today, results will be available in the next 3-5 days. Take the pain medication, nausea medication, antibiotic therapy as directed. Please follow up tomorrow with their oncologist, Dr. Bocanegra at 9:00 in the morning. Return to the ER right away with new pain, worsened pain, migration of pain, fevers, chills, lethargy, irritability, projectile vomiting, change in mental status, confusion, inability to tolerate liquid feeds, worsening pain, change in mental status. Referrals: PRIMARY CARE, [Primary Care Provider] - 3-5 Days QUINTIN BOCANEGRA MD [Staff Physician] - 3-5 Days
[2017-12-08] MEDS ORDERED: cefTRIAXone 1 GM in NACL 0.9% 20 ML IV ONE (06:45)
[2017-12-08 07:32] LABS: Bilirubin,Direct 1.2 mg/dL (0-0.2)
[2017-12-08 11:43] VITALS: BP 101/68
== END 2017-12-08 11:46 | disposition home or self-care (01) ==
LOC: ED 23:40
DX: R10.30 Lower abdominal pain, unspecified (principal); Z90.13 Acquired absence of bilateral breasts and nipples; Z85.3 Personal history of malignant neoplasm of breast; Z88.8 Allergy status to other drugs, medicaments and biological substances
CPT/HCPCS: 36415; 80053; 81001; 82248; 82550; 83615; 83735; 84100; 84550; 85007; 85025; 87076; 87086; 87186; 96361; 96365; 96375; 99283; J0696; J1170; J2405; J7030

== ENCOUNTER 2018-03-30 09:45 | Outpatient (CLI) | payer MEDICAID ==
--- NOTE | 2018-03-30 15:37 | Magnetic Resonance Report ---
BILATERAL BREAST MRI WITHOUT AND WITH CONTRAST: 03/30/18 09:45:00 CLINICAL: History of bilateral breast cancer status post bilateral mastectomy, axillary node dissection and reconstruction with a left TRAM flap performed in 1989 and a right latissimus dorsi flap performed in 1990 at [facility]. History of triple negative cancer. She is also BRCA1 positive and had a recent right chest wall recurrence with an open necrotic wound of the right chest wall. She has completed chemotherapy but has had no radiation therapy or adjuvant hormonal therapy. COMPARISON:CT chest with contrast 11/16/17. TECHNIQUE: Axial 1.0-mm T1 without, axial high resolution 2.0-mm T2 and axial 1.0-mm dynamic Vibrant high-resolution postcontrast T1 fat saturation sequences on a 1.5 Hawa magnet. The examination was performed with an 8 channel dedicated Sentinelle breast coil. Post processing with CAD and subtraction was performed on an [employer] workstation. 18.0 cc of Multihance was injected without incident for the contrast portion of the exam. Consent was obtained prior to the administration of the contrast. FINDINGS: Right: Minimal background parenchymal enhancement. An open inferior deep surgical wound extends to the chest wall. The edges of the wound are thickened measuring 8 mm maximum and the wound demonstrates moderate enhancement with a benign pattern of enhancement. No mass or suspicious enhancement of the right breast or right chest wall. A benign intraparenchymal lymph node at 9 o'clock 7 cm from the nipple measures 5.0 x 3.8 x 3.1 mm. It has benign morphology with central fat. No suspicious lymph nodes. Left: Minimal background parenchymal enhancement. No mass or suspicious enhancement. Intact reconstruction flap. No suspicious lymph nodes. IMPRESSION: 1. No evidence of residual malignancy in the right breast. 2. Negative reconstructed left breast. 3. No suspicious lymph nodes.
== END 2018-03-30 09:46 | disposition home or self-care (01) ==
LOC: SPVIMAG 09:45
PROVIDERS: ATTEND Surgery
DX: C50.311 Malignant neoplasm of lower-inner quadrant of right female breast (principal); Z90.12 Acquired absence of left breast and nipple
CPT/HCPCS: A9577; C8908; 77059

== ENCOUNTER 2018-03-31 08:50 | Outpatient (CLI) | payer MEDICAID ==
[2018-03-31 09:38] LABS: Blood Urea Nitrogen 17 mg/dL (7-17)
--- NOTE | 2018-04-02 21:34 | Cat Scan Report ---
FINAL REPORT EXAM: CT ABDOMEN PELVIS W CON HISTORY: Malig neoplm of lower-inner quadrant of right female breast TECHNIQUE: Following oral administration of GI contrast and IV administration of 100 cc of Omnipaque 300 axial helical imaging was performed through the abdomen and pelvis with sagittal and coronal reformatted images obtained. Delayed axial helical imaging was also performed through the abdomen and pelvis. Comparison: CT abdomen and pelvis dated November 16, 2017 FINDINGS: The lung bases are without infiltrate, pneumothorax or pleural fluid collection. The heart appears to be enlarged. There are numerous small foci of decreased density within the liver that are too small to characterize. These are not significantly changed in size or number in the interval. There is a small focus of decreased density within the spleen that is too small to characterize but is also not significantly changed in the interval. The pancreas is unremarkable in appearance. There is mild prominence of the adrenal glands similar in appearance to the previous study. The gallbladder is moderately distended and unremarkable in appearance. There are bilateral renal parapelvic cysts and stable appearing left cortical cyst and caliceal diverticulum. The bowel is normal caliber. There is a moderate amount of stool in the ascending, transverse and descending colon. The appendix is normal caliber. There is no evidence of pneumoperitoneum or free fluid. The abdominal aorta is normal caliber. There is no evidence of pathologic intra-abdominal adenopathy by CT size criteria. The uterus is enlarged, similar in appearance and appears to contain fibroids. The urinary bladder is decompressed The bony structures are notable for degenerative facet change in the lower lumbar spine. IMPRESSION: 1. No evidence of an acute intra-abdominal process. 2. No significant change in size or of nonspecific areas of decreased density within the liver and spleen. 3. Stable appearance of mild prominence of the adrenal glands. 4. Bilateral renal cysts and left renal caliceal diverticulum. 5. Enlarged uterus that appears to contain fibroids and is similar in appearance to the previous study. 6. Spondylitic change lower lumbar spine.
--- NOTE | 2018-04-02 22:15 | Cat Scan Report ---
FINAL REPORT EXAM: CT CHEST W CON HISTORY: Malig neoplm of lower-inner quadrant of right female breast TECHNIQUE: Following IV administration of 100 cc of Omnipaque 300 and oral administration of GI contrast axial helical imaging was performed through the chest with sagittal and coronal reformatted images obtained. Comparison: CT chest dated November 16, [address] abdomen and pelvis also performed today. FINDINGS: There is no evidence of infiltrate, pneumothorax or pleural fluid collection. The trachea and bronchi are patent. The heart is enlarged. The thoracic aorta is normal caliber. There is no evidence of intrathoracic adenopathy. There are prominent lymph nodes in the left axillary region. These appear to of increased in size in the interval. The largest lymph node on today's study measures 14 millimeters in the maximal axial dimension compared with 10.4 millimeters on the previous study. The visualized portion of the upper abdomen is notable for hypodensities in the liver and spleen that have not significantly changed in size or number since the previous study dated November 16, 2017. The bony structures are notable for areas of decreased density an upper thoracic vertebra that are nonspecific in appearance but do not appear to be significantly changed in the interval. There is evidence of previous right mastectomy. The previously demonstrated surgical wound has significantly decreased in size in the interval. IMPRESSION: 1. No evidence of an acute pulmonary process. 2. Cardiomegaly. 3. Prominent lymph nodes in the left axillary region the largest of which has increased in size in the interval. 4. Areas of decreased density in upper thoracic vertebra that are nonspecific in appearance but do not appear to be significantly changed in the interval. 5. Previous right mastectomy with interval decrease in size of the surgical wound.
== END 2018-03-31 08:51 | disposition home or self-care (01) ==
LOC: CT 08:50
PROVIDERS: ATTEND Surgery
DX: C50.311 Malignant neoplasm of lower-inner quadrant of right female breast (principal); I51.7 Cardiomegaly; M47.896 Other spondylosis, lumbar region; N28.1 Cyst of kidney, acquired; K57.90 Diverticulosis of intestine, part unspecified, without perforation or abscess without bleeding; Z90.12 Acquired absence of left breast and nipple
CPT/HCPCS: 36415; 71260; 74177; 82565; 84520; Q9967

== ENCOUNTER 2018-04-10 12:45 | Outpatient (CLI) | payer MEDICAID ==
--- NOTE | 2018-04-10 15:47 | Ultrasound Report ---
ULTRASOUND GUIDED NEEDLE CORE BIOPSY OF A LEFT AXILLARY LYMPH NODE WITH CLIP PLACEMENT : 04/10/18 12:45:00 CLINICAL: History of bilateral breast cancer COMPARISON :03/30/18 MRI FINDINGS: The procedure was explained to the patient and informed consent was obtained. Ultrasound demonstrated a suspicious left axillary lymph node with cortical thickening of 5-6 mm.. The skin in the axilla was prepped with Betadine and anesthetized with 1% lidocaine. Ultrasound guided needle core biopsy of the lymph node was performed through a small dermatotomy using 2% lidocaine with epinephrine for deep anesthesia and a 18-gauge Achieve biopsy device. 2 samples were obtained and placed in formalin. A clip was deployed at the margin of the lymph node. Hemostasis was achieved with minimal pressure and a sterile dressing was applied. The patient tolerated the procedure well and there were no apparent complications. She was discharged in good condition and was given instructions for wound care and followup. IMPRESSION: Uncomplicated ultrasound-guided needle core biopsy of a left axillary lymph node with clip placement.
== END 2018-04-10 12:46 | disposition home or self-care (01) ==
LOC: SPVWC 12:45
PROVIDERS: ATTEND Surgery
DX: C50.311 Malignant neoplasm of lower-inner quadrant of right female breast (principal)
CPT/HCPCS: 38505; 76942; 88305

== ENCOUNTER 2018-04-18 11:40 | Day surgery (SDC) | payer MEDICAID ==
[2018-04-18] MEDS ORDERED: MARCAINE 0.25% INFILTRATI ONE ×3 (12:01→12:33)
[2018-04-18] MEDS ORDERED: XYLOCAINE 1% 20 mL ONE ×2 (12:02→12:11)
[2018-04-18 13:05] VITALS: BP 134/72
--- NOTE | 2018-04-18 15:45 | Operative Report ---
Operative Report Operative Report: Date of surgery: 04/18/18 Preoperative diagnosis: Breast cancer, port hematoma Postoperative diagnosis: Same as above Procedure: Removal of left Port-A-Cath Surgeon: Werner Marcus Anesthesia: Local Findings: 30 mL of old hematoma evacuated from the wound EBL: Less than 5 mL Specimen: Port and catheter Complications: None Disposition: Stable to phase II recovery HPI an indication: Patient is a 58-year-old female with breast cancer who had a left-sided port placed for chemotherapy. The patient has completed chemotherapy. Patient has a subcutaneous hematoma surrounding the port secondary to multiple accesses during chemotherapy. She reports significant pain in this area and because she is finished with chemotherapy, requested removal of the port. This was discussed with the patient's breast surgeon and the patient was referred by her oncologist. All risks, benefits, alternatives to port removal were discussed with the patient and consent obtained. All questions were answered. Procedure in detail: The patient was identified and brought back to the procedure room. Consent was verified on the chart. Her left chest was prepped and draped in usual sterile fashion and a timeout performed. Local anesthetic consisting of 0.25% Marcaine with epinephrine was infiltrated into the skin and subcutaneous tissue at the patient's previous incision site. A 4 cm incision was made using the 15 blade. Using hemostat the subcutaneous tissue was spread and the pocket of the port entered. There was immediate drainage of old unclotted blood. Approximately 30 mL was evacuated. The port and catheter were visualized, and the catheter was grasped between 2 hemostats. The catheter was cut between the hemostat using the 15 blade and the catheter removed. Pressure was held at the site for 5 minutes, and no back bleeding was visualized. The port was dissected free from the surrounding tissue using hemostat for blunt dissection. The port was then removed intact. Both removed foreign objects were sent to pathology for identification. The wound bed was copiously irrigated with warm saline solution and remaining clot evacuated. There was hemostasis. The wound was packed with one piece of saline moistened gauze. This was covered with dry 4 x 4 gauze and secured with a Tegaderm. Patient tolerated the procedure well. All sharps were disposed of appropriately. At the end of the case, all sharp, instrument and sponge counts were correct.
== END 2018-04-18 13:00 | disposition home or self-care (01) ==
LOC: OR 11:40
PROVIDERS: ATTEND Surgery
DX: L76.32 Postprocedural hematoma of skin and subcutaneous tissue following other procedure (principal); C50.911 Malignant neoplasm of unspecified site of right female breast; Z88.8 Allergy status to other drugs, medicaments and biological substances; Z79.899 Other long term (current) drug therapy; Z90.13 Acquired absence of bilateral breasts and nipples; Z98.890 Other specified postprocedural states
CPT/HCPCS: 88302

== ENCOUNTER 2018-10-12 11:59 | Emergency (ER) | payer MEDICAID ==
[2018-10-12 12:14] VITALS: BP 110/65
--- NOTE | 2018-10-12 12:17 | Emergency Department Report ---
ED Rash HPI - HPI Chief Complaint: Animal Bite Stated Complaint: BED BUGS BITES Time Seen by Provider: 10/12/18 12:12 Duration: 1 Day Location: Back, Upper Extremities, Lower Extremities Rash Symptoms: Yes Itching, No Facial Swelling, No Tongue/Oral Swelling, No Breathing Difficulties, No Choking Sensation, No Wheezing/Dyspnea, No Peeling, No Blistering, No Fever, No Lightheaded, No Malaise, No Myalgias Severity: mild Other History: This is a 58-year-old female that presents with bedbug bites to upper, lower and back. Patient stated that this started when she slept over a friends house last night and then started to have these symptoms. Patient deneis any fever, chills, headache, nausea, vomiting chest pain or shortness of breathe. Denies any angioedema. ED Review of Systems ROS: Stated complaint: BED BUGS BITES Other details as noted in HPI Constitutional: denies: chills, fever Eyes: denies: eye pain, eye discharge, vision change ENT: denies: ear pain, throat pain Respiratory: denies: cough, shortness of breath, wheezing Cardiovascular: denies: chest pain, palpitations Endocrine: no symptoms reported Gastrointestinal: denies: abdominal pain, nausea, diarrhea Genitourinary: denies: urgency, dysuria, discharge Musculoskeletal: denies: back pain, joint swelling, arthralgia Skin: denies: rash, lesions Neurological: denies: headache, weakness, paresthesias Psychiatric: denies: anxiety, depression Hematological/Lymphatic: denies: easy bleeding, easy bruising ED Past Medical Hx - Past Medical History Hx Congestive Heart Failure: No Hx Diabetes: No Hx Asthma: No Hx COPD: No Hx HIV: No Additional medical history: Breast Cancer 1989 - Surgical History Hx Breast Surgery: Yes Additional Surgical History: Breast cancer with bilateral mastectomy and reconstruction 1989. - Social History Smoking Status: Never Smoker - Medications Home Medications: Home Medications Medication Instructions Recorded Confirmed Last Taken Type Hydromorphone HCl [Dilaudid] 4 mg PO Q6H PRN #45 tablet 05/18/18 Unknown Rx Ibuprofen [Motrin] 800 mg PO Q8HR PRN #60 tablet 05/18/18 Unknown Rx Prednisone [predniSONE 10 mg 10 mg PO .TAPER #1 tab.ds.pk 10/12/18 Unknown Rx (6-Day Pack, 21 Tabs)] diphenhydrAMINE [Benadryl CAP] 25 mg PO Q8H PRN #20 capsule 10/12/18 Unknown Rx Rash Exam - Exam General: Vital signs noted. No distress. Alert and acting appropriately. HEENT: No Periorbital Edema, No Conjuctival Injection, No Chemosis, No Perioral Edema, No Tongue Edema, No Uvular Edema, No Compromised Airway, No Drooling Lungs: Yes Good Air Exchange (Normal Breath Sounds), No Wheezes, No Ronchi, No Stridor, No Cough, No Labored Respirations, No Retractions, No Use of Accessory Muscles, No Other Abnormal Lung Sounds Heart: Yes Regular, No Murmur Skin: Yes Other (small light puncate bite oro with redness and itching), No Urticarial Rash, No Maculopapular Rash, No Morbilliform rash, No Bulla(e), No Excoriations, No Weeping, No Tenderness, No Erythema, No Edema, No Encrustations Other: Positive: Abdomen Normal, Neurologic Normal, Musculoskeletal Normal ED Course - Reevaluation(s) Reevaluation #1: 10/12/18 12:16 Patient is speaking in full sentences with no signs of distress noted. ED Medical Decision Making - Medical Decision Making Patient was educated on how to prevent and treat bedbugs. Was given papers on bedbugs. Patient was instructed to Follow-up with a primary care doctor in 3-5 days or if symptoms worsen and continue return to emergency room as soon as possible. At time of discharge, the patient does not seem toxic or ill in appearance. No acute signs of distress noted. Patient agrees to discharge treatment plan of care. No further questions noted by the patient. Critical care attestation.: If time is entered above; I have spent that time in minutes in the direct care of this critically ill patient, excluding procedure time. ED Disposition Clinical Impression: Bedbug bite Qualifiers: Encounter type: initial encounter Qualified Code(s): W57.XXXA - Bitten or stung by nonvenomous insect and other nonvenomous arthropods, initial encounter Disposition: - TO HOME OR SELFCARE Is pt being admited?: No Does the pt Need Aspirin: No Condition: Stable Instructions: Insect Bite or Sting (ED) Additional Instructions: Follow-up with a primary care doctor in 3-5 days or if symptoms worsen and continue return to emergency room as soon as possible. Prescriptions: diphenhydrAMINE [Benadryl CAP] 25 mg PO Q8H PRN #20 capsule PRN Reason: Itching Prednisone [predniSONE 10 mg (6-Day Pack, 21 Tabs)] 10 mg PO .TAPER #1 tab.ds.pk Referrals: PRIMARY CARE, [Referring] - 3-5 Days MISAEL OTERO MD [Staff Physician] - 3-5 Days [facility] [Outside] - 3-5 Days [facility] [Outside] - 3-5 Days Forms: Work/School Release Form(ED)
== END 2018-10-12 12:37 | disposition home or self-care (01) ==
LOC: ED 11:59
DX: S30.860A Insect bite (nonvenomous) of lower back and pelvis, initial encounter (principal); S20.469A Insect bite (nonvenomous) of unspecified back wall of thorax, initial encounter; W57.XXXA Bitten or stung by nonvenomous insect and other nonvenomous arthropods, initial encounter; Y93.89 Activity, other specified; Y92.89 Other specified places as the place of occurrence of the external cause; Y99.8 Other external cause status
CPT/HCPCS: 99282

== ENCOUNTER 2018-11-09 09:06 | Outpatient (CLI) | payer MEDICAID ==
[2018-11-09 10:23] LABS: Blood Urea Nitrogen 12 mg/dL (7-17)
--- NOTE | 2018-11-09 13:27 | Cat Scan Report ---
CT scan of chest with IV contrast: Compared to 03/31/18. History: Breast cancer. Findings: There is complex mass measuring 1.89 cm in diameter noted in the right lobe of thyroid gland. No endobronchial lesion. No mediastinal mass or adenopathy. No pleural pericardial effusion. Ill-defined multiple airspace opacities right upper lobe. Scarring left lower lobe. No discrete nodularity. Impression: Ill-defined airspace opacities right upper lobe suggestive of pneumonitis among others.
--- NOTE | 2018-11-09 13:44 | Cat Scan Report ---
CT scan of abdomen and pelvis with IV contrast: Compared to 03/31/18. History: Breast cancer. Findings: Liver is normal in size. Well-defined hypodensities are identified in the liver without significant interval change. Normal gallbladder. Single hypodensity in the spleen without interval change. Normal pancreas. Cysts at the left kidney with dilatation of the pelvis of the right and left kidney without significant interval change. The uterus has been removed. Inadequately distended urinary bladder. No evidence of adenopathy. No free intraperitoneal fluid or air. Gaseous colon with stool in colon. No bowel distention. Impression: No interval change liver spleen and kidneys. Findings described probably benign. Additional findings as detailed above.
--- NOTE | 2018-11-09 15:31 | Nuclear Medicine Report ---
NUCLEAR MEDICINE WHOLE-BODY BONE SCAN: 11/09/18 CLINICAL: History of right breast cancer diagnosed in 2018. Bilateral forearm and lower leg pain. COMPARISON: 11/16/17 TECHNIQUE: 25 millicuries technetium 99m MDP was injected intravenously and whole body scans were obtained at 3 hours. FINDINGS: Normal distribution of radionuclide in the skeleton and soft tissues. No suspicious uptake. IMPRESSION: Negative study.
== END 2018-11-09 09:07 | disposition home or self-care (01) ==
LOC: CT 09:06
PROVIDERS: ATTEND Internal Medicine Hematology
DX: C50.911 Malignant neoplasm of unspecified site of right female breast (principal); N32.89 Other specified disorders of bladder; N28.1 Cyst of kidney, acquired; Z86.2 Personal history of diseases of the blood and blood-forming organs and certain disorders involving the immune mechanism
CPT/HCPCS: 36415; 71260; 74177; 78306; 82565; 84520; A9503; Q9967

== ENCOUNTER 2019-07-01 13:48 | Emergency (ER) | payer MEDICAID ==
--- NOTE | 2019-07-01 14:00 | Event Note ---
ED Screening Note Date of service: 07/01/19 Time: 13:59 ED Screening Note: 59 y o female presnts with suprapubic pain and dysuria with hematuria x 2 days This initial assessment/diagnostic orders/clinical plan/treatment(s) is/are subject to change based on patients health status, clinical progression and re- assessment by fellow clinical providers in the ED. Further treatment and workup at subsequent clinical providers discretion. Patient/guardian urged not to elope from the ED as their condition may be serious if not clinically assessed and managed. Initial orders include: ua acc eval
[2019-07-01 14:04] VITALS: BP 119/80
[2019-07-01 15:47] LABS: Bacteria,Urine 1+ /HPF (Negative); Bilirubin,Urine NEG (Negative); Blood,Urine LG (Negative); Color,Urine Yellow (Yellow); Mucus,Urine FEW /HPF
[2019-07-01 15:51] LABS: WBC,Urine > 182.0 /HPF (0.0-6.0)
--- NOTE | 2019-07-01 16:21 | Emergency Department Report ---
ED General Adult HPI - General Chief complaint: Urogenital-Female Stated complaint: UTI SX Time Seen by Provider: 07/01/19 14:46 Source: patient Mode of arrival: Ambulatory Limitations: No Limitations - History of Present Illness Initial comments: 59-year-old -[place] female patient complains of burning urination, urinary frequency, and urinary urgency 2 days. She denies any flank pain, fever, vaginal discharge/bleeding, or abdominal pain. The discomfort with urination at 8/10 in severity. She denies history of recurrent UTIs. -: Sudden Quality: burning - Related Data Previous Rx's Medication Instructions Recorded Last Taken Type Hydromorphone HCl [Dilaudid] 4 mg PO Q6H PRN #45 tablet 05/18/18 Unknown Rx Ibuprofen [Motrin] 800 mg PO Q8HR PRN #60 tablet 05/18/18 Unknown Rx Prednisone [predniSONE 10 mg 10 mg PO .TAPER #1 tab.ds.pk 10/12/18 Unknown Rx (6-Day Pack, 21 Tabs)] diphenhydrAMINE [Benadryl CAP] 25 mg PO Q8H PRN #20 capsule 10/12/18 Unknown Rx Ibuprofen [Motrin 800 MG tab] 800 mg PO Q8HR PRN #15 tablet 07/01/19 Unknown Rx Sulfamethoxazole/Trimethoprim 1 each PO BID 5 Days #10 tablet 07/01/19 Unknown Rx [Bactrim DS TAB] Allergies Allergy/AdvReac Type Severity Reaction Status Date / Time adhesive tape AdvReac Rash Verified 05/17/18 23:10 hydrocodone AdvReac Nausea Verified 05/10/18 11:09 oxycodone AdvReac Nausea Verified 05/10/18 11:09 ED Review of Systems ROS: Stated complaint: UTI SX Other details as noted in HPI Comment: All other systems reviewed and negative Constitutional: denies: chills, fever Genitourinary: as per HPI ED Past Medical Hx - Past Medical History Previous Medical History?: Yes Hx Congestive Heart Failure: No Hx Diabetes: No Hx Asthma: No Hx COPD: No Hx HIV: No Additional medical history: Breast Cancer 1989 - Surgical History Hx Breast Surgery: Yes Additional Surgical History: Breast cancer with bilateral mastectomy and reconstruction 1989. - Social History Smoking Status: Never Smoker Substance Use Type: None - Medications Home Medications: Home Medications Medication Instructions Recorded Confirmed Last Taken Type Hydromorphone HCl [Dilaudid] 4 mg PO Q6H PRN #45 tablet 05/18/18 Unknown Rx Ibuprofen [Motrin] 800 mg PO Q8HR PRN #60 tablet 05/18/18 Unknown Rx Prednisone [predniSONE 10 mg 10 mg PO .TAPER #1 tab.ds.pk 10/12/18 Unknown Rx (6-Day Pack, 21 Tabs)] diphenhydrAMINE [Benadryl CAP] 25 mg PO Q8H PRN #20 capsule 10/12/18 Unknown Rx Ibuprofen [Motrin 800 MG tab] 800 mg PO Q8HR PRN #15 tablet 07/01/19 Unknown Rx Sulfamethoxazole/Trimethoprim 1 each PO BID 5 Days #10 tablet 07/01/19 Unknown Rx [Bactrim DS TAB] ED Physical Exam - General Limitations: No Limitations General appearance: alert, in no apparent distress - Head Head exam: Present: atraumatic, normocephalic - Eye Eye exam: Present: normal appearance - GI/Abdominal GI/Abdominal exam: Present: soft, normal bowel sounds. Absent: distended, tenderness, guarding, rebound, rigid - Back Exam Back exam: Absent: CVA tenderness (R), CVA tenderness (L) - Neurological Exam Neurological exam: Present: alert, oriented X3 - Psychiatric Psychiatric exam: Present: normal affect, normal mood - Skin Skin exam: Present: warm, dry, intact, normal color. Absent: rash ED Course Vital Signs 07/01/19 14:02 Temperature 98.1 F Pulse Rate 85 Respiratory 20 Rate Blood Pressure 119/80 O2 Sat by Pulse 100 Oximetry ED Medical Decision Making - Medical Decision Making 59-year-old -[place] female patient complains of burning urination, urinary frequency, and urinary urgency 2 days. She denies any flank pain, feve r, vaginal discharge/bleeding, or abdominal pain. UA shows obvious UTI. Vitals are normal. Patient is stable for discharge home. Prescription given for Bactrim and ibuprofen. Recommend follow-up with PCP. Discussed strict return precautions in detail with patient who verbalizes understanding. Critical care attestation.: If time is entered above; I have spent that time in minutes in the direct care of this critically ill patient, excluding procedure time. ED Disposition Clinical Impression: UTI (urinary tract infection) Qualifiers: Urinary tract infection type: acute cystitis Hematuria presence: without hematuria Qualified Code(s): N30.00 - Acute cystitis without hematuria Disposition: TO HOME OR SELFCARE Is pt being admited?: No Condition: Stable Instructions: Urinary Tract Infection in Women (ED) Prescriptions: Sulfamethoxazole/Trimethoprim [Bactrim DS TAB] 1 each PO BID 5 Days #10 tablet Ibuprofen [Motrin 800 MG tab] 800 mg PO Q8HR PRN #15 tablet PRN Reason: pain Referrals: PRIMARY CARE, [Referring] - 3-5 Days
[2019-07-01] MEDS ORDERED: IBUPROFEN 800 MG TAB PO ONE (16:22)
[2019-07-01] MEDS ORDERED: SULFAMETHOXAZOLE/TRIMETHOPRIM 800/160MG DS TAB PO ONE (16:22)
== END 2019-07-01 16:57 | disposition home or self-care (01) ==
LOC: ED 13:48
DX: N39.0 Urinary tract infection, site not specified (principal); Z98.890 Other specified postprocedural states; Z88.6 Allergy status to analgesic agent; Z91.09 Other allergy status, other than to drugs and biological substances; Z79.899 Other long term (current) drug therapy
CPT/HCPCS: 81001

== ENCOUNTER 2019-07-19 09:31 | Outpatient (CLI) | payer MEDICAID ==
[2019-07-19 10:34] LABS: Blood Urea Nitrogen 11 mg/dL (7-17)
--- NOTE | 2019-07-19 13:18 | Cat Scan Report ---
CT CHEST, ABDOMEN AND PELVIS WITH CONTRAST HISTORY: Malignant neoplasm right lower inner breast. Status post bilateral mastectomy with TRAM dragan nstruction. COMPARISON: 11/09/2018 TECHNIQUE: Routine chest, abdominal and pelvic CT exam performed following intravenous contrast admi nistration. Note: All CT scans at this location are performed using CT dose reduction employed for ALARA by means of automated exposure control. CONTRAST: 100 mL Omnipaque 300. Consent was obtained prior to the administration of the contrast. FINDINGS: CT CHEST: Heart and Pericardium: No significant abnormality. Vasculature: No significant abnormality. Lymphatics: No lymphadenopathy. Lungs: No significant abnormality. Trachea and Bronchi: No significant abnormality. Osseous Structures: No significant abnormality. CT ABDOMEN: Liver: A few small benign hepatic cysts. Biliary: No significant abnormality. Spleen: No significant abnormality. Unenlarged. Pancreas: No significant abnormality. Adrenals: No significant abnormality. Kidneys: Large bilateral parapelvic cysts unchanged compared to previous exams. No hydronephrosis. A few benign renal cysts. Lymphatics: No lymphadenopathy. Vasculature: No significant abnormality. Bowel/Peritoneum: No significant abnormality. No free air. No free fluid. CT PELVIC: : No significant abnormality. Status post hysterectomy. Osseous Structures: No suspicious bone lesions. Additional Findings: Mild free pelvic fluid. IMPRESSION: 1. No evidence of disease recurrence or metastasis. 2. Status post hysterectomy. Signer Name: Eren Schaefer MD Signed: 07/19/2019 1:14 PM Workstation Name: [id number]
--- NOTE | 2019-07-19 13:33 | Cat Scan Report ---
CT CHEST, ABDOMEN AND PELVIS WITH CONTRAST HISTORY: Malignant neoplasm right lower inner breast. Status post bilateral mastectomy with TRAM dragan nstruction. COMPARISON: 11/09/2018 TECHNIQUE: Routine chest, abdominal and pelvic CT exam performed following intravenous contrast admin istration. Note: All CT scans at this location are performed using CT dose reduction employed for [place] RAMAN by means of automated exposure control. CONTRAST: 100 mL Omnipaque 300. Consent was obtained prior to the administration of the contrast. FINDINGS: CT CHEST: Heart and Pericardium: No significant abnormality. Vasculature: No significant abnormalit y. Lymphatics: No lymphadenopathy. Lungs: No significant abnormality. Trachea and Bronchi: No sign ificant abnormality. Osseous Structures: No significant abnormality. CT ABDOMEN: Liver: A few small benign hepatic cysts. Biliary: No significant abnormality. Spleen: No significant abnormality. Unenlarged. Pancreas: No significant abnormality. Adrenals: No signific ant abnormality. Kidneys: Large bilateral parapelvic cysts unchanged compared to previous exams. No hydronephrosis. A few benign renal cysts. Lymphatics: No lymphadenopathy. Vasculature: No significa nt abnormality. Bowel/Peritoneum: No significant abnormality. No free air. No free fluid. CT PELVIC: : No significant abnormality. Status post hysterectomy. Osseous Structures: No suspicious bone lesions. Additional Findings: Mild free pelvic fluid. IMPRESSION: 1. No evidence of disease recurrence or metastasis. 2. Status post hysterectomy. Signer Name: Eren Schaefer MD Signed: 07/19/2019 1:29 PM Workstation Name: [id number]
== END 2019-07-19 09:32 | disposition home or self-care (01) ==
LOC: CT 09:31
PROVIDERS: ATTEND Internal Medicine Hematology
DX: N28.1 Cyst of kidney, acquired (principal); K76.89 Other specified diseases of liver; C50.919 Malignant neoplasm of unspecified site of unspecified female breast
CPT/HCPCS: 36415; 71260; 74177; 82565; 84520; Q9967

== ENCOUNTER 2020-04-28 11:06 | Outpatient (CLI) | payer MEDICARE ==
[2020-04-28 12:29] LABS: Blood Urea Nitrogen 14 mg/dL (7-17)
--- NOTE | 2020-04-28 15:09 | Cat Scan Report ---
CT CHEST WITH CONTRAST INDICATION / CLINICAL INFORMATION: MALIGNANT NEOPLASM OF UNSPECIFIED SITE OF FEMALE BREAST. TECHNIQUE: Axial CT images were obtained through the chest after 100 cc of Omnipaque 300 IV contrast. Sagittal a nd coronal reformatted images. All CT scans at this location are performed using CT dose reduction fo r ALARA by means of automated exposure control. COMPARISON: 07/19/2019 FINDINGS: HEART: No significant abnormality. THORACIC AORTA: No significant abnormality. MEDIASTINUM and CHUCK: No significant abnormality. LUNGS: Minor subpleural scarring in the anterior right upper lobe is again seen which probably repres ents radiation changes. No evidence for pulmonary nodule, mass or infiltrate. PLEURA: No significant pleural effusion. No pneumothorax. SKELETAL SYSTEM: No significant abnormality. ADDITIONAL FINDINGS: Stable surgical changes in the right breast. IMPRESSION: Stable findings in the chest since 07/19/2019 exam. No evidence for disease recurrence or metastasis. CT ABDOMEN AND PELVIS WITH CONTRAST HISTORY: MALIGNANT NEOPLASM OF UNSPECIFIED SITE OF FEMALE BREAST COMPARISON: 07/19/2019 TECHNIQUE: Axial CT images were obtained through the abdomen and pelvis after 100 cc of Omnipaque 300 intravenously. Sagittal and coronal reformatted images. All CT scans at this location are performed using CT dose reduction for ALARA by means of automated exposure control. FINDINGS: CT ABDOMEN: Liver: No significant abnormality. Stable 1.5 cm cyst in the right hepatic lobe. Biliary: No significant abnormality. Spleen: No significant abnormality. Unenlarged. Pancreas: No significant abnormality. Adrenals: No significant abnormality. Kidneys: Multiple bilateral renal cysts are unchanged in size and number. No renal mass or hydronephr osis. Lymphatics: No lymphadenopathy. Vasculature: No significant abnormality. Bowel/Peritoneum: No significant abnormality. No free air. No free fluid. Normal appendix. CT PELVIS: : Hysterectomy. The bladder and distal ureters are unremarkable. Osseous Structures: No suspicious bony lesion or fracture. Additional Findings: None IMPRESSION: Stable findings since 07/19/2019 exam. No evidence for metastatic disease to the abdomen or pelvis. Signer Name: Butch Adams Jr, MD Signed: 04/28/2020 3:04 PM Workstation Name: [id number]
== END 2020-04-28 11:07 | disposition home or self-care (01) ==
LOC: CT 11:06
PROVIDERS: ATTEND Internal Medicine Hematology
DX: N28.1 Cyst of kidney, acquired (principal); K76.89 Other specified diseases of liver; C50.919 Malignant neoplasm of unspecified site of unspecified female breast; Z90.710 Acquired absence of both cervix and uterus; J98.4 Other disorders of lung
CPT/HCPCS: 36415; 71260; 74177; 82565; 84520; Q9967

== ENCOUNTER 2020-06-06 16:51 | Emergency (ER) | payer MEDICARE ==
[2020-06-06 17:07] VITALS: BP 106/74
--- NOTE | 2020-06-06 17:14 | Emergency Department Report ---
ED ENT HPI - General Chief complaint: Dental/Oral Stated complaint: MOUTH PAIN Source: patient Mode of arrival: Ambulatory Limitations: No Limitations - History of Present Illness Initial comments: 60-year-old -[place] female presents to the emergency room for right upper gum pain x4 days. Patient states that she has a broken tooth and now her gum is swollen and very painful. Patient states that she took a BC and Tylenol which has helped some but pain is still there. Patient denies any trauma no fever no chills no nausea no vomiting MD complaint: tooth pain Onset/Timin -: days(s) Location: tooth # (5) Severity scale (0 -10): 8 Quality: stabbing, sharp Consistency: constant Improves with: none Worsens with: none Context- Dental: history of dental caries, poor dental care Associated Symptoms: toothache - Related Data Previous Rx's Medication Instructions Recorded Last Taken Type Hydromorphone HCl [Dilaudid] 4 mg PO Q6H PRN #45 tablet 05/18/18 Unknown Rx Ibuprofen [Motrin] 800 mg PO Q8HR PRN #60 tablet 05/18/18 Unknown Rx Prednisone [predniSONE 10 mg 10 mg PO .TAPER #1 tab.ds.pk 10/12/18 Unknown Rx (6-Day Pack, 21 Tabs)] diphenhydrAMINE [Benadryl CAP] 25 mg PO Q8H PRN #20 capsule 10/12/18 Unknown Rx Sulfamethoxazole/Trimethoprim 1 each PO BID 5 Days #10 tablet 07/01/19 Unknown Rx [Bactrim DS TAB] Clindamycin [Clindamycin CAP] 300 mg PO Q8H #30 cap 06/06/20 Unknown Rx Ibuprofen [Motrin 800 MG tab] 800 mg PO Q8HR PRN #15 tablet 06/06/20 Unknown Rx Allergies Allergy/AdvReac Type Severity Reaction Status Date / Time adhesive tape AdvReac Rash Verified 06/06/20 17:03 hydrocodone AdvReac Nausea Verified 06/06/20 17:03 oxycodone AdvReac Nausea Verified 06/06/20 17:03 ED Dental HPI - General Chief complaint: Dental/Oral Stated complaint: MOUTH PAIN Source: patient Mode of arrival: Ambulatory Limitations: No Limitations - Related Data Previous Rx's Medication Instructions Recorded Last Taken Type Hydromorphone HCl [Dilaudid] 4 mg PO Q6H PRN #45 tablet 05/18/18 Unknown Rx Ibuprofen [Motrin] 800 mg PO Q8HR PRN #60 tablet 05/18/18 Unknown Rx Prednisone [predniSONE 10 mg 10 mg PO .TAPER #1 tab.ds.pk 10/12/18 Unknown Rx (6-Day Pack, 21 Tabs)] diphenhydrAMINE [Benadryl CAP] 25 mg PO Q8H PRN #20 capsule 10/12/18 Unknown Rx Sulfamethoxazole/Trimethoprim 1 each PO BID 5 Days #10 tablet 07/01/19 Unknown Rx [Bactrim DS TAB] Clindamycin [Clindamycin CAP] 300 mg PO Q8H #30 cap 06/06/20 Unknown Rx Ibuprofen [Motrin 800 MG tab] 800 mg PO Q8HR PRN #15 tablet 06/06/20 Unknown Rx Allergies Allergy/AdvReac Type Severity Reaction Status Date / Time adhesive tape AdvReac Rash Verified 06/06/20 17:03 hydrocodone AdvReac Nausea Verified 06/06/20 17:03 oxycodone AdvReac Nausea Verified 06/06/20 17:03 ED Review of Systems ROS: Stated complaint: MOUTH PAIN Other details as noted in HPI Comment: All other systems reviewed and negative Constitutional: denies: chills, fever ENT: dental pain Respiratory: no symptoms reported Cardiovascular: denies: chest pain, palpitations ED Past Medical Hx - Past Medical History Hx Congestive Heart Failure: No Hx Diabetes: No Hx Asthma: No Hx COPD: No Hx HIV: No Additional medical history: Breast Cancer 1989 - Surgical History Hx Breast Surgery: Yes Additional Surgical History: Breast cancer with bilateral mastectomy and reconstruction 1989. - Social History Smoking Status: Never Smoker Substance Use Type: None - Medications Home Medications: Home Medications Medication Instructions Recorded Confirmed Last Taken Type Hydromorphone HCl [Dilaudid] 4 mg PO Q6H PRN #45 tablet 05/18/18 Unknown Rx Ibuprofen [Motrin] 800 mg PO Q8HR PRN #60 tablet 05/18/18 Unknown Rx Prednisone [predniSONE 10 mg 10 mg PO .TAPER #1 tab.ds.pk 10/12/18 Unknown Rx (6-Day Pack, 21 Tabs)] diphenhydrAMINE [Benadryl CAP] 25 mg PO Q8H PRN #20 capsule 04/04/19 Unknown Rx Sulfamethoxazole/Trimethoprim 1 each PO BID 5 Days #10 tablet 07/01/19 Unknown Rx [Bactrim DS TAB] Clindamycin [Clindamycin CAP] 300 mg PO Q8H #30 cap 06/06/20 Unknown Rx Ibuprofen [Motrin 800 MG tab] 800 mg PO Q8HR PRN #15 tablet 06/06/20 Unknown Rx ED Physical Exam - General Limitations: No Limitations General appearance: alert, in no apparent distress - Head Head exam: Present: atraumatic, normocephalic - ENT ENT exam: Present: mucous membranes moist - Neck Neck exam: Present: normal inspection, full ROM - Respiratory Respiratory exam: Absent: respiratory distress, chest wall tenderness - Back Exam Back exam: Present: full ROM - Neurological Exam Neurological exam: Present: alert, oriented X3 - Psychiatric Psychiatric exam: Present: normal affect, normal mood - Skin Skin exam: Present: warm, dry, intact, normal color. Absent: rash ED Course Vital Signs 06/06/20 17:06 Temperature 97.9 F Pulse Rate 67 Respiratory 18 Rate Blood Pressure 106/74 O2 Sat by Pulse 98 Oximetry ED Medical Decision Making - Medical Decision Making 60-year-old -[place] female presents to the emergency room for right upper gum pain x4 days. Patient states that she has a broken tooth and now her gum is swollen and very painful. Patient states that she took a BC and Tylenol which has helped some but pain is still there. Patient denies any trauma no fever no chills no nausea no vomiting Patient will be discharged home on clindamycin and ibuprofen and referral to dental. Critical care attestation.: If time is entered above; I have spent that time in minutes in the direct care of this critically ill patient, excluding procedure time. ED Disposition Clinical Impression: Dental abscess Disposition: DC-01 TO HOME OR SELFCARE Is pt being admited?: No Does the pt Need Aspirin: No Condition: Stable Instructions: Dental Abscess, [id number] Additional Instructions: Please complete antibiotics as prescribed pain medication as needed. Prescriptions: Clindamycin [Clindamycin CAP] 300 mg PO Q8H #30 cap Ibuprofen [Motrin 800 MG tab] 800 mg PO Q8HR PRN #15 tablet PRN Reason: pain Referrals: [facility] [Provider Group] - 3-5 Days [facility] [Outside] - 3-5 Days
== END 2020-06-06 17:30 | disposition home or self-care (01) ==
LOC: ED 16:51
DX: K04.7 Periapical abscess without sinus (principal); Z79.899 Other long term (current) drug therapy; Z88.8 Allergy status to other drugs, medicaments and biological substances
CPT/HCPCS: 99282

== ENCOUNTER 2020-11-09 10:16 | Emergency (ER) | payer MEDICARE ==
[2020-11-09 10:23] VITALS: BP 108/71
--- NOTE | 2020-11-09 10:59 | Emergency Department Report ---
ED General Adult HPI - General Chief complaint: Eye Problems Stated complaint: RT EYE IRRITATION Time Seen by Provider: 11/09/20 10:42 Source: patient Mode of arrival: Ambulatory Limitations: No Limitations - History of Present Illness Initial comments: 60-year-old female patient presents emergency department with complaints of nontraumatic right eye swelling and irritation starting 3 days ago. She does not wear contact lenses. She used [id number] antihistamine eyedrops with limited relief. No known sick contacts. No current steroid or antibiotic use. Denies fever, chills, purulent drainage, vision changes, cough, congestion, sore throat, ear pain. Denies all other complaints at this time. - Related Data Previous Rx's Medication Instructions Recorded Last Taken Type Hydromorphone HCl [Dilaudid] 4 mg PO Q6H PRN #45 tablet 05/18/18 Unknown Rx Ibuprofen [Motrin] 800 mg PO Q8HR PRN #60 tablet 05/18/18 Unknown Rx Prednisone [predniSONE 10 mg 10 mg PO .TAPER #1 tab.ds.pk 10/12/18 Unknown Rx (6-Day Pack, 21 Tabs)] diphenhydrAMINE [Benadryl CAP] 25 mg PO Q8H PRN #20 capsule 10/12/18 Unknown Rx Sulfamethoxazole/Trimethoprim 1 each PO BID 5 Days #10 tablet 07/01/19 Unknown Rx [Bactrim DS TAB] Clindamycin [Clindamycin CAP] 300 mg PO Q8H #30 cap 06/06/20 Unknown Rx Ibuprofen [Motrin 800 MG tab] 800 mg PO Q8HR PRN #15 tablet 06/06/20 Unknown Rx Erythromycin [Erythromycin Ophth 10 applic OP QID 5 Days tube 11/09/20 Unknown Rx Oint] Allergies Allergy/AdvReac Type Severity Reaction Status Date / Time hydrocodone AdvReac Nausea Verified 11/09/20 10:23 oxycodone AdvReac Nausea Verified 11/09/20 10:23 ED Review of Systems ROS: Stated complaint: RT EYE IRRITATION Other details as noted in HPI Other: GENERAL: Negative for fever. EYES: Positive for swelling and irritation. CARDIOVASCULAR: Negative for chest pain. PULMONARY: Negative for shortness of breath. GASTROINTESTINAL: Negative for abdominal pain. MUSCULOSKELETAL: Negative for back pain. NEUROLOGICAL: Negative for headache. INTEGUMENTARY: Negative for rash. ED Past Medical Hx - Past Medical History Hx Congestive Heart Failure: No Hx Diabetes: No Hx Asthma: No Hx COPD: No Hx HIV: No Additional medical history: Breast Cancer 1989 - Surgical History Hx Breast Surgery: Yes Additional Surgical History: Breast cancer with bilateral mastectomy and reconstruction 1989. - Social History Smoking Status: Never Smoker Substance Use Type: None - Medications Home Medications: Home Medications Medication Instructions Recorded Confirmed Last Taken Type Hydromorphone HCl [Dilaudid] 4 mg PO Q6H PRN #45 tablet 05/18/18 Unknown Rx Ibuprofen [Motrin] 800 mg PO Q8HR PRN #60 tablet 05/18/18 Unknown Rx Prednisone [predniSONE 10 mg 10 mg PO .TAPER #1 tab.ds.pk 10/12/18 Unknown Rx (6-Day Pack, 21 Tabs)] diphenhydrAMINE [Benadryl CAP] 25 mg PO Q8H PRN #20 capsule 10/12/18 Unknown Rx Sulfamethoxazole/Trimethoprim 1 each PO BID 5 Days #10 tablet 07/01/19 Unknown Rx [Bactrim DS TAB] Clindamycin [Clindamycin CAP] 300 mg PO Q8H #30 cap 06/06/20 Unknown Rx Ibuprofen [Motrin 800 MG tab] 800 mg PO Q8HR PRN #15 tablet 06/06/20 Unknown Rx Erythromycin [Erythromycin Ophth 10 applic OP QID 5 Days tube 11/09/20 Unknown Rx Oint] ED Physical Exam - General Limitations: No Limitations - Other Other exam information: General: Awake, appropriately interactive, no acute distress. Eyes: PERRL. EOMI. Conjugate gaze. Normal sclera. There is a small papule along the medial aspect of the right conjunctiva, no purulent drainage. There is mild soft tissue swelling to the right upper eyelid. No periorbital edema. No pain with extraocular movements. Neck: Supple. Full range of motion intact. Cardiovascular: Normal peripheral perfusion. Pulmonary: No respiratory distress. Patient is speaking normally without use of accessory muscles. Skin: No apparent rashes or lesions. Neurological: No facial asymmetry. Speech is clear. Follows commands. Patient is alert and oriented. Musculoskeletal: Moves all four extremities spontaneously with normal range of motion. Psych: Cooperative. Appropriate mood and affect. ED Course Vital Signs 11/09/20 10:21 Temperature 98.4 F Pulse Rate 61 Respiratory 18 Rate Blood Pressure 108/71 O2 Sat by Pulse 100 Oximetry ED Medical Decision Making - Medical Decision Making Differential diagnosis including but not limited to: style, chalazion, conjunctivitis, dacryocystitis, periorbital/orbital cellulitis, pterygium Patient presents to the emergency department with signs/symptoms consistent with hordeolum. She does not wear contact lenses. She is afebrile, hemodynamically stable, and is unaffected. No clinical indication for further diagnostic work- up or emergent ophthalmology consultation at this time. Patient will be discharged home with antibiotic ointment and referred to ophthalmology for close outpatient follow-up. Emphasized importance of frequent handwashing and applying warm compresses as needed. Patient expressed understanding and is agreeable to plan of care. Strict return precautions provided. Repeat exam is unremarkable and benign. History, exam, diagnostic testing, and current condition do not suggest worrisome pathology to warrant further testing, continued ED treatment, admission, or surgical evaluation at this point. Given the low probability of a significant medical illness, it would be more likely to result in harm than benefit to perform further testing at this stage. Discussed findings, presumptive diagnosis, need for follow-up and specific signs/symptoms that should prompt immediate return to the emergency department. Instructions were explained in detail to the patient in addition to giving written discharge information. Patient expressed understanding and was given the opportunity to ask questions, all of which were satisfactorily answered prior to discharge home. Critical care attestation.: If time is entered above; I have spent that time in minutes in the direct care of this critically ill patient, excluding procedure time. ED Disposition Clinical Impression: Hordeolum of right eye Qualifiers: Hordeolum type: unspecified type Eyelid: lower Qualified Code(s): H00.012 - Hordeolum externum right lower eyelid Disposition: DC-01 TO HOME OR SELFCARE Is pt being admited?: No Does the pt Need Aspirin: No Condition: Stable Instructions: Stye Additional Instructions: Use erythromycin ointment as directed. Apply warm compresses to the affected area as needed. Wash hands frequently. Follow-up with ophthalmology this week. Call tomorrow to schedule an appointment. Return to the emergency department immediately for new or worsening symptoms. Prescriptions: Erythromycin [Erythromycin Ophth Oint] 10 applic OP QID 5 Days tube Referrals: EMILY EDGAR MD [Staff Physician] - 3-5 Days JESSICA AYERS MD [Staff Physician] - 3-5 Days SARI JUNIOR MD [Staff Physician] - 3-5 Days SYDNEE CORRALES MD [Staff Physician] - 3-5 Days PRESTON QUINTERO MD [Staff Physician] - 3-5 Days SONJA DONALDSON MD [Staff Physician] - 3-5 Days Time of Disposition: 10:59
== END 2020-11-09 19:00 | disposition home or self-care (01) ==
LOC: ED 10:16
DX: H00.013 Hordeolum externum right eye, unspecified eyelid (principal); Z98.890 Other specified postprocedural states; Z79.1 Long term (current) use of non-steroidal anti-inflammatories (NSAID); Z79.2 Long term (current) use of antibiotics; Z79.899 Other long term (current) drug therapy; Z88.8 Allergy status to other drugs, medicaments and biological substances
CPT/HCPCS: 99282

== ENCOUNTER 2021-03-10 10:44 | Outpatient (CLI) | payer MEDICARE ==
[2021-03-10 11:48] LABS: Blood Urea Nitrogen 13 mg/dL (7-17)
--- NOTE | 2021-03-10 12:54 | Cat Scan Report ---
CT ABDOMEN AND PELVIS WITH CONTRAST INDICATION / CLINICAL INFORMATION: MALIGNANT NEOPLASM OF UNSPECIFIED SITE OF FEMALE BREAST OMNI 300 1 00 ML. TECHNIQUE: Axial CT images were obtained through the abdomen and pelvis after IV contrast. All CT sc ans at this location are performed using CT dose reduction for ALARA by means of automated exposure c ontrol. COMPARISON: CT abdomen and pelvis 04/28/2020 FINDINGS: LOWER CHEST: Posttreatment changes right breast. LIVER: Stable hypodensities throughout the liver, largest in the right hepatic lobe measuring simple fluid. These are compatible with cysts. No suspicious enhancing lesion GALLBLADDER: No significant abnormality. BILE DUCTS: No significant abnormality. PANCREAS: No significant abnormality. SPLEEN: No significant abnormality. ADRENALS: No significant abnormality. RIGHT KIDNEY / URETER: Multiloculated peripelvic cysts are unchanged LEFT KIDNEY / URETER: Multiloculated peripelvic and cortical cysts are unchanged. STOMACH / SMALL BOWEL: No significant abnormality. COLON: No significant abnormality. APPENDIX: No significant abnormality. PERITONEUM: Trace free fluid in the pelvis is nonspecific and possibly physiologic No free air. No fl uid collection. LYMPH NODES: No significant adenopathy. AORTA / ARTERIES: No significant abnormality. IVC / VEINS: No significant abnormality. URINARY BLADDER: No significant abnormality. REPRODUCTIVE ORGANS: No significant abnormality. ADDITIONAL FINDINGS: Small ventral hernia containing mesenteric fat and fluid is similar. SKELETAL SYSTEM: No aggressive osseous lesion. IMPRESSION: 1. Stable exam without CT evidence of metastatic disease in the abdomen or pelvis. Trace free fluid i n the pelvis is nonspecific and possibly physiologic. 2. Additional stable incidental findings as above. Signer Name: Isreal Reza MD Signed: 03/10/2021 12:49 PM Workstation Name: [id number]
--- NOTE | 2021-03-10 13:31 | Cat Scan Report ---
CT CHEST WITH CONTRAST INDICATION / CLINICAL INFORMATION: MALIGNANT NEOPLASM OF UNSPECIFIED SITE OF FEMALE BREAST OMNI 300 100 ML. TECHNIQUE: Axial CT images were obtained through the chest after 100 cc of Omnipaque [address] sca ns at this location are performed using CT dose reduction for ALARA by means of automated exposure co ntrol. COMPARISON: 04/28/2020. FINDINGS: THORACIC AORTA: No significant abnormality. HEART: No significant abnormality. LYMPHADENOPATHY: Stable prominent but nonenlarged left axillary lymph node measures 1.1 cm in short a xis (series 2 image 40). No new or increasing lymphadenopathy. LUNGS/PLEURA: Right lung scarring is unchanged. No suspicious pulmonary nodule or mass. No acute airs pace consolidation. No pleural effusion or pneumothorax. ADDITIONAL CHEST FINDINGS: Prior right mastectomy. There is unchanged postsurgical scarring in the ri ght chest wall. UPPER ABDOMEN: Detailed separately. SKELETAL SYSTEM: No significant abnormality. IMPRESSION: Stable findings in the chest from CT from 04/28/2020. No evidence of recurrent or metastatic disease. Signer Name: Lucien Loera MD Signed: 03/10/2021 1:26 PM Workstation Name: [id number]
== END 2021-03-10 10:45 | disposition home or self-care (01) ==
LOC: CT 10:44
PROVIDERS: ATTEND Internal Medicine Hematology
DX: C50.919 Malignant neoplasm of unspecified site of unspecified female breast (principal); R91.8 Other nonspecific abnormal finding of lung field; Z90.11 Acquired absence of right breast and nipple; K43.9 Ventral hernia without obstruction or gangrene
CPT/HCPCS: 36415; 71260; 74177; 82565; 84520; Q9967

== ENCOUNTER 2021-07-02 10:25 | Outpatient (CLI) | payer MEDICARE ==
[2021-07-02 11:18] LABS: Blood Urea Nitrogen 15 mg/dL (7-17)
--- NOTE | 2021-07-02 14:44 | Cat Scan Report ---
CT CHEST, ABDOMEN, AND PELVIS WITH IV CONTRAST INDICATION / CLINICAL INFORMATION: MALIGNANT NEOPLASM OF FEMALE BREAST omni 300 100ml . TECHNIQUE: Axial CT images were obtained through the chest, abdomen, and pelvis after IV contrast. All CT scans at this location are performed using CT dose reduction for ALARA by means of automated exposure contr ol. COMPARISON: CT chest abdomen pelvis 03/10/2021 FINDINGS: HEART: No significant abnormality. THORACIC AORTA: No significant abnormality. MEDIASTINUM and CHUCK: No significant abnormality. LUNGS: No acute air space or interstitial disease. Radiation fibrosis anterior aspect right upper lo be PLEURA: No significant pleural effusion. No pneumothorax. ADDITIONAL CHEST FINDINGS: Postsurgical change from right mastectomy. No axillary adenopathy LIVER: No significant abnormality. 1.3 cm cyst posterior hepatic segment. GALLBLADDER: No significant abnormality. BILE DUCTS: No significant abnormality. PANCREAS: No significant abnormality. SPLEEN: No significant abnormality. ADRENALS: No significant abnormality. RIGHT KIDNEY and URETER: Parapelvic right renal cysts, unchanged LEFT KIDNEY and URETER: Parapelvic and simple left renal cortical cysts, unchanged STOMACH and SMALL BOWEL: No significant abnormality. COLON: No significant abnormality. APPENDIX: Normal PERITONEUM: No free fluid. No free air. No fluid collection. LYMPH NODES: No significant adenopathy. AORTA and ARTERIES: No significant abnormality. IVC and VEINS: No significant abnormality. URINARY BLADDER: No significant abnormality. REPRODUCTIVE ORGANS: Surgically absent ADDITIONAL FINDINGS: None. SKELETAL SYSTEM: No significant abnormality. IMPRESSION: 1. No CT evidence for intrathoracic, abdominal, pelvic or skeletal metastases or interval change Signer Name: Mik Orona MD Signed: 07/02/2021 2:40 PM Workstation Name: [id number]
== END 2021-07-02 10:26 | disposition home or self-care (01) ==
LOC: CT 10:25
PROVIDERS: ATTEND Internal Medicine Hematology
DX: C50.919 Malignant neoplasm of unspecified site of unspecified female breast (principal); R91.8 Other nonspecific abnormal finding of lung field; N28.1 Cyst of kidney, acquired; K76.89 Other specified diseases of liver; Z90.710 Acquired absence of both cervix and uterus
CPT/HCPCS: 36415; 71260; 74177; 82565; 84520; Q9967

== ENCOUNTER 2022-01-15 10:48 | Outpatient (CLI) | payer MEDICARE ==
[2022-01-15 11:47] LABS: Blood Urea Nitrogen 17 mg/dL (7-17)
--- NOTE | 2022-01-15 15:58 | Cat Scan Report ---
CT CHEST, ABDOMEN, AND PELVIS WITH IV CONTRAST INDICATION / CLINICAL INFORMATION: C50.919. Breast cancer follow-up TECHNIQUE: Axial CT images were obtained through the chest, abdomen, and pelvis after IV contrast. All CT scans at this location are performed using CT dose reduction for ALARA by means of automated exposure contr ol. COMPARISON: 07/02/2021 FINDINGS: CHEST: Mild increased density is seen within the anterior aspect of the right upper lung adjacent to the pleura which appears similar to prior examination may represent fibrosis. The left lung is clear. Mild inflammation and soft tissue changes in the right chest wall right breast appears similar to pr ior examination. Right mastectomy changes are noted. A few small nodes are seen in the right axilla w hich appear unchanged. A few small nodes in left axilla also appears similar to prior exam. No signif icant coronary artery calcification. Heart size appears normal. No dominant mediastinal or hilar magda opathy. ABDOMEN/PELVIS: Hypodensity right hepatic lobe suggest cyst, unchanged. Bilateral parapelvic and diego ical cysts. Visualized portions of the pancreas and adrenal glands are unchanged. Small splenic hypod ensity also appears unchanged. Celiac and SMA appear normal. Small fluid collection in umbilical jose armando on appears unchanged measuring 2 cm. There is atrophy of the right rectus abdominal muscles. Left rec tus abdominal muscles show some fatty infiltration however unremarkable. No bowel obstruction is seen . Urinary bladder wall may be mildly thickened with some surrounding inflammation however there is in complete distention. No large amount of free fluid in the pelvis. Appendix appears normal. Small ingu inal nodes without dominant adenopathy. SKELETAL SYSTEM: No significant abnormality. IMPRESSION: 1. No definite evidence for metastatic disease. Incidental findings as described above appears simila r to prior examination. Questionable mild urinary bladder wall thickening with surrounding inflammati on however there is incomplete distention. Signer Name: Kenneth Simon MD Signed: 01/15/2022 3:54 PM Workstation Name: [id number]
== END 2022-01-15 10:49 | disposition home or self-care (01) ==
LOC: CT 10:48
PROVIDERS: ATTEND Internal Medicine Hematology
DX: C50.919 Malignant neoplasm of unspecified site of unspecified female breast (principal); D70.9 Neutropenia, unspecified; E86.0 Dehydration; R11.0 Nausea; K59.00 Constipation, unspecified; L03.90 Cellulitis, unspecified; R19.7 Diarrhea, unspecified; D64.9 Anemia, unspecified; Z51.11 Encounter for antineoplastic chemotherapy; M25.50 Pain in unspecified joint; G62.9 Polyneuropathy, unspecified; R63.5 Abnormal weight gain; I25.10 Atherosclerotic heart disease of native coronary artery without angina pectoris; R91.1 Solitary pulmonary nodule; K76.89 Other specified diseases of liver; N28.89 Other specified disorders of kidney and ureter; M62.50 Muscle wasting and atrophy, not elsewhere classified, unspecified site
CPT/HCPCS: 36415; 71260; 74177; 82565; 84520; Q9967